=== PATIENT | male | born 1970 | race Caucasian/White ===

== ENCOUNTER 2016-08-16 08:46 | Day surgery (SDC) | payer MEDICAID ==
[~2016-08-16] VITALS: Ht 185.4 cm; Wt 97.1 kg
[2016-08-16] MEDS ORDERED: PRINIVIL10 MG PO (09:52)
[2016-08-16] MEDS ORDERED: KLONOPIN1 MG PO (09:53)
[2016-08-16] MEDS ORDERED: HYSINGLA ER20 MG PO (09:53)
[2016-08-16] MEDS ORDERED: FLOMAX0.4 MG PO (09:54)
[2016-08-16] MEDS ORDERED: ZYPREXA10 MG PO (09:54)
[2016-08-16] MEDS ORDERED: OMEPRAZOLE20 M1 PO (09:54)
[2016-08-16] MEDS ORDERED: DESERYL100 MG PO (09:55)
[2016-08-16] MEDS ORDERED: NEURONTIN600 MG PO (09:55)
[2016-08-16 10:05] VITALS: BP 116/68; Ht 185.4 cm; Wt 97.1 kg
[2016-08-16 10:49] LABS: HEMATOCRIT 43.1 % (42.0-54.0); HEMOGLOBIN 14.7 g/dL (13.5-17.5); MCH 30.2 pg (26.0-34.0); MCHC 34.1 g/dL (31.0-37.0); MCV 88.5 fL (80.0-100.0); MEAN PLATELET VOLUME 9.4 fL (7.4-10.4); RBC 4.87 10x6/uL (4.20-6.10); RDW 13.5 % (11.5-14.5); WBC 5.8 10x3/uL (4.8-10.8)
[2016-08-16 11:02] LABS: CALC OSMOLALITY 282 mosm/kg (275-300); CALCIUM 9.1 mg/dL (8.5-10.1); CARBON DIOXIDE 24.3 mmol/L (21.0-32.0); CHLORIDE - SERUM 107 mmol/L (98-107); CREATININE - SERUM 0.8 mg/dL (0.6-1.3); GLUCOSE 102 mg/dL (74-106); POTASSIUM - SERUM 4.4 mmol/L (3.5-5.1); SODIUM 141 mmol/L (136-145); UREA NITROGEN 17 mg/dL (7-18); eGFR NON AFRICAN AMERICAN > 90 mL/min (90-120)
--- NOTE | 2016-08-16 16:50 | NUR ---
RIGHT HAND PIV DC'D WITH TIP INTACT, PATIENT DRESSING IN PERSONAL CLOTHING. DISCHARGE INSTRUCTIONS REVIEWED WITH PATIENT AND SISTER. DISCHARGED HOME VIA WHEELCHAIR TO PRIVATE VEHICLE WITH SISTER
--- NOTE | 2016-08-18 06:33 | OP ---
PATIENT NAME: ASHLI BARBER MEDICAL RECORD: [id number] :70 LOCATION:D.OPS ADMISSION DATE: SURGEON: DONALD MOY MD DATE OF OPERATION: 08/16/2016 PREOPERATIVE DIAGNOSIS: Bilateral hip pain. POSTOPERATIVE DIAGNOSIS: Bilateral hip pain. PROCEDURE: Injection under TIVA anesthesia and fluoroscopy of bilateral hips. ANESTHESIA: General. INTRAOPERATIVE COMPLICATIONS: None. SUMMARY OF PATHOLOGIC FINDINGS: Essentially none. The left hip seems to be more arthritic than the right. OPERATIVE SUMMARY IN DETAIL: After obtaining the appropriate orthopedic surgery consent as well as anesthetic consultation, evaluation and clearance, the patient was brought to the operating room and placed on the radiolucent table in supine position. After adequate TIVA anesthesia was administered, right and left hips were prepped and draped in a routine sterile fashion. An 18-gauge needle was guided directly into the hip capsule. This was checked with Isovue and then 40 mg of Depo-Medrol with 10 cc of 0.25% Marcaine with epinephrine were injected directly into the right hip. Needle tip was withdrawn. This was repeated a second time on the left side. Again, a 18-gauge spinal needle was directed directly into the hip with fluoroscopic guidance. Isovue again showed the needle was within the hip and again 40 mg Depo-Medrol and 10 cc of 0.25% Marcaine with epinephrine were injected into the hip. The patient tolerated the procedure well, was taken to recovery in stable condition. All final needle and sponge counts were correct. TRANSINT:[id number] Voice Confirmation ID: [id number] DOCUMENT ID: [id number] DONALD MOY MD at 0633 CC: [id number] DICTATION DATE: 08/16/16 1538 REAL ESTATE LOAN PROCESSOR: 08/16/16 2342 [facility] 08/16/16 [place] [id number]
== END 2016-08-16 16:55 | disposition home or self-care (01) ==
LOC: D.OPS 08:46 → D.PAN 13:30 → D.OPS 13:30
PROVIDERS: Anesthesiology
DX: M25.552 Pain in left hip (principal); M25.551 Pain in right hip; M13.852 Other specified arthritis, left hip; M13.851 Other specified arthritis, right hip

== ENCOUNTER → 2017-06-27 13:16 | Outpatient (CLI) | payer MEDICAID ==
[2016-08-16 10:05] VITALS: BMI 28.2
[~2017-06-27 13:16] MED LIST: DESERYL100 MG PO; FLOMAX0.4 MG PO; HYSINGLA ER20 MG PO; KLONOPIN1 MG PO; NEURONTIN600 MG PO; OMEPRAZOLE20 M1 PO; PRINIVIL10 MG PO; ZYPREXA10 MG PO
== END | disposition home or self-care (01) ==
LOC: D.MRI 13:00
DX: M25.561 Pain in right knee (principal)

== ENCOUNTER → 2017-09-13 14:58 | Outpatient (CLI) | payer MEDICAID ==
[2016-08-16 10:05] VITALS: BMI 28.2
[~2017-09-13 14:58] MED LIST changes: +BELSOMRA5 MG PO; +HYDROCODONE-APA1 TAB PO; +NEURONTIN 300300 MG PO; -NEURONTIN600 MG PO; +PERCOCET 10/3251 TA1 PO; +VALIUM 2 MG TAB2 MG PO
== END | disposition home or self-care (01) ==
LOC: D.MRI 14:58
DX: M54.2 Cervicalgia (principal)

== ENCOUNTER 2017-10-26 05:15 | Day surgery (SDC) | payer MEDICAID ==
[~2017-10-26] VITALS: Ht 185.4 cm; Wt 87.5 kg
--- NOTE | ~2017-10-26 | OP ---
PATIENT NAME: ASHLI BARBER MEDICAL RECORD: [id number] :70 LOCATION:DMAGDY ADMISSION DATE: SURGEON: DONALD OMY MD DATE OF OPERATION: 10/26/2017 PREOPERATIVE DIAGNOSIS: Medial meniscus tear of the right knee. POSTOPERATIVE DIAGNOSIS: Medial meniscus tear of the right knee. PROCEDURE: Arthroscopic partial medial meniscectomy. SURGEON: Donald Moy MD ANESTHESIA: General. INTRAOPERATIVE COMPLICATIONS: None. 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 OPERATIVE SUMMARY IN DETAIL: After obtaining the appropriate preoperative orthopedic surgery consent as well as anesthetic consultation, evaluation and clearance, the patient was brought to the operating room and placed on the operating table in supine position. After general laryngeal mask airway was administered, tourniquet was placed about the proximal aspect of the right lower extremity. Right lower extremity was then prepped and draped in routine sterile fashion. Leg was elevated and exsanguinated, and tourniquet was inflated to 350 mmHg. Routine inferior lateral portal was established, followed by superomedial portal and inferomedial portal. Diagnostic arthroscopy did show the above findings. Patellofemoral joint had a small area of chondromalacia in the apex at the patella. The lateral compartment was pristine. Arthroscopic resector along with a meniscotome were then utilized to debride the medial meniscus back to stable meniscal elements with good retention of the meniscus structure. Having completed this, the knee was insufflated with 30 cc of 0.25% Marcaine and 80 mg of Depo-Medrol. Arthroscopy portals were closed in routine interrupted fashion using 4-0 Prolene. Sterile dressings were applied. The patient was awakened and taken to recovery room in stable condition. All final needle and sponge counts were correct. TRANSINT:[id number] Voice Confirmation ID: [id number] DOCUMENT ID: [id number] DONALD MOY MD at 1048 CC: [id number] DICTATION DATE: 10/26/17 0955 RENAL NURSE: 10/26/17 1147 [place] [facility] [place]26/17 [facility] [address] [place] [place] [address]
[~2017-10-26 05:15] MED LIST changes: -BELSOMRA5 MG PO; -PERCOCET 10/3251 TA1 PO
[2017-10-26 06:37] VITALS: BP 143/93; Ht 185.4 cm; Wt 87.5 kg
[2017-10-26] MEDS ORDERED: BELSOMRA5 MG PO (06:55)
[2017-10-26] MEDS ORDERED: PERCOCET 10/3251 TA1 PO (09:00)
[2017-11-27] MEDS ORDERED: CHANTIX 1 MG TAB1 MG PO (12:38)
== END 2017-10-26 11:00 | disposition home or self-care (01) ==
LOC: D.OPS 05:15 → D.PAN 07:30 → D.OPS 11:00
DX: S83.206A Unspecified tear of unspecified meniscus, current injury, right knee, initial encounter (principal)

== ENCOUNTER 2017-10-31 06:05 | Day surgery (SDC) | payer MEDICAID ==
[~2017-10-31] VITALS: Ht 185.4 cm; Wt 89.8 kg
--- NOTE | ~2017-10-31 | OP ---
PATIENT NAME: ASHLI BARBER MEDICAL RECORD: [id number] :70 LOCATION:[facility] ADMISSION DATE: SURGEON: RONY HOLLIDAY MD DATE OF OPERATION: 10/31/2017 SURGEON: Rony Holliday MD ANESTHESIA: General anesthesia by Myrna Pineda CRNA PREOPERATIVE DIAGNOSIS: Slow urinary flow. 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 PROCEDURE: Cystoscopy. ESTIMATED BLOOD LOSS: None. CLINICAL HISTORY: This is a 47-year-old male, who has been complaining of a slow urinary flow for the past few years. He has been on Flomax for the past 2 years and initially it helped somewhat, but is not helping now. He has urinary frequency up to 10 times during the day and also very frequent nocturia. He did have a history of falling off a roof in 2006 and he was catheterized while he was in the hospital there. Therefore, I am checking today with cystoscopy to see if he has urethral stricture. If he has urethral stricture, we will go ahead and incise it. HE IS ALLERGIC TO PENICILLIN. He was given Levaquin IV cupola charger insulation to the OR. DESCRIPTION OF PROCEDURE: The patient was given induction of general anesthesia. He was placed in dorsal lithotomy position, prepped and draped. I started with a 17-Uzbek cystoscope with 30-degree lens for visualization. The penile urethra was completely normal with no signs of strictures at all. The prostatic urethra shows no obstruction by the lateral lobes. However, the bladder neck is quite tight and obstructive. Going into the bladder, the bladder is moderately trabeculated and there were single ureteral orifices on each side. No bladder tumors were seen. The bladder was emptied through the cystoscope sheath and then the sheath was removed. The patient was awakened and brought to the recovery room. I will discuss a possible GreenLight laser TURP with him in the future. TRANSINT:[id number] Voice Confirmation ID: [id number] DOCUMENT ID: [id number] RONY HOLLIDAY MD at 1259 CC: [id number] DICTATION DATE: 10/31/17 0942 PLATING TANK OPERATOR APPRENTICE: 10/31/17 1132 REG [facility] [address] [place] [address]
[~2017-10-31 06:05] MED LIST changes: +BELSOMRA5 MG PO; +PERCOCET 10/3251 TA1 PO
[2017-10-31 07:42] VITALS: BP 128/78; Ht 185.4 cm; Wt 89.8 kg
[2017-11-27] MEDS ORDERED: CHANTIX 1 MG TAB1 MG PO (12:38)
== END 2017-10-31 12:30 | disposition home or self-care (01) ==
LOC: D.OPS 06:05
DX: N32.0 Bladder-neck obstruction (principal); N32.89 Other specified disorders of bladder; R35.0 Frequency of micturition; R35.1 Nocturia; Z88.0 Allergy status to penicillin; Z01.812 Encounter for preprocedural laboratory examination

== ENCOUNTER 2017-11-28 07:35 | Day surgery (SDC) | payer MEDICAID ==
[~2017-11-28] VITALS: Ht 185.4 cm; Wt 87.5 kg
--- NOTE | ~2017-11-28 | OP ---
PATIENT NAME: ASHLI BARBER MEDICAL RECORD: [id number] :70 LOCATION:D.[facility] ADMISSION DATE: SURGEON: RONY HOLLIDAY MD DATE OF OPERATION: 11/28/2017 SURGEON: Rony Holliday MD ANESTHESIA: General anesthesia by Surya Vargas CRNA DIAGNOSIS: Obstructive benign prostatic hypertrophy. PROCEDURE: Cystoscopy, GreenLight laser transurethral resection of the prostate, power 80-100 méndez, laser on time 10 minutes and 2 seconds, energy 55,061 kilojoules. FINDINGS: Median lobe hyperplasia, BPH, causing bladder neck obstruction. SPECIMENS: None. BLOOD LOSS: None. CLINICAL HISTORY: This is a 47-year-old male, who complains of a longstanding history of slow urinary flow. He has a significant urinary frequency also. He has been put on Flomax and it has not helped him. He has a history of previous pelvic injury from falling off a roof. On 10/31/2017, I took him to cystoscopy thinking that he may have a urethral stricture. What I found was that he did not have any urethral stricture. Instead he had obstructive BPH from a large median lobe. No bladder tumors were seen. He comes today to have a GreenLight laser transurethral resection of the prostate. He is allergic to PENICILLIN. He was given Levaquin IV ornamental ironworker to the OR. It should be noted that he is also a chronic pain patient having chronic pain since his fall off the roof. He requested Dilaudid be given to him postoperatively for pain management as he feels that Stanley is ineffective. DESCRIPTION OF PROCEDURE: The patient was given induction of general anesthesia. He was then placed into a dorsal lithotomy position and prepped and draped. The laser resectoscope had difficulty entering into the urethral meatus and therefore his urethra had to be dilated to 26-Maltese with male sounds. The scope was then placed using the visual obturator. Urethra again shows no strictures. He has lateral lobes, which are not occlusive. The bladder neck is extremely tight and the scope has to be deflected quite significantly anteriorly to get into the bladder. The ureteral orifices are located at some distance away from the bladder neck. We then introduced the laser fiber. Starting at 80 méndez and resecting between the bladder neck and just proximal to the verumontanum and the 6 o'clock position we created a large channel for urine and fluid flow. Eventually, the entire posterior wall was taken down and the bladder neck median lobe was resected without undermining the bladder neck at all. We then went proximally towards the verumontanum and cleared out a nice space on the posterior wall. The lateral lobes then started to encroach inwards and these were also resected down to the pseudocapsule. As we did more of the resection, the tissue started to desiccate and we had to increase the power to 100 méndez. At the end of the procedure, no bleeding was seen at all. In fact, the procedure had been bloodless throughout. He had a wide open channel from just proximal to the verumontanum to the bladder neck. The ureteral orifices were intact. The scope was removed. A 20-Maltese 3-way Craig catheter was then OPERATIVE REPORT [id number] ASHLI BARBER introduced into the bladder. The balloon was inflated with 20 cc of sterile water. The inflow port was plugged with a catheter plug. I then put the catheter to bag drainage. The patient will be going home today with a prescription for Dilaudid 8 mg p.o. q.6 hours p.r.n. 16 tablets with no refills and also oxybutynin 5 mg p.o. t.i.d. p.r.n. for bladder spasms. I will see him in the office later this week to remove the Craig catheter for voiding trial. TRANSINT:[id number] Voice Confirmation ID: [id number] DOCUMENT ID: [id number] RONY HOLLIDAY MD at 1345 CC: [id number] DICTATION DATE: 11/28/17 1225 ELECTROPLATER AUTOMATIC: 11/28/17 1246 REG [facility] [address] [place] [address]
[~2017-11-28 07:35] MED LIST changes: +CHANTIX 1 MG TAB1 MG PO
[2017-11-28 08:00] VITALS: Ht 185.4 cm; Wt 87.5 kg
[2017-11-28] MEDS ORDERED: OXYBUTYNIN CHLOR5 MG PO (14:44)
[2017-11-28] MEDS ORDERED: DILAUDID8 MG PO (14:44)
== END 2017-11-28 15:05 | disposition home or self-care (01) ==
LOC: D.OPS 07:35 → D.PAN 09:30 → D.OPS 15:05
DX: N40.1 Benign prostatic hyperplasia with lower urinary tract symptoms (principal); N13.8 Other obstructive and reflux uropathy; R35.0 Frequency of micturition; R39.12 Poor urinary stream; G89.29 Other chronic pain; Z91.81 History of falling; Z88.0 Allergy status to penicillin; Z01.812 Encounter for preprocedural laboratory examination

== ENCOUNTER → 2017-12-08 16:52 | Outpatient (CLI) | payer MEDICAID ==
[2017-11-28 08:00] VITALS: BMI 25.5
[~2017-12-08 16:52] MED LIST changes: +DILAUDID8 MG PO; +OXYBUTYNIN CHLOR5 MG PO
== END | disposition home or self-care (01) ==
LOC: D.LABREF 16:52
DX: D72.829 Elevated white blood cell count, unspecified (principal); R31.9 Hematuria, unspecified

== ENCOUNTER → 2018-12-17 07:49 | Outpatient (CLI) | payer MEDICAID ==
[2017-11-28 08:00] VITALS: BMI 25.5
[~2018-12-17 07:49] MED LIST changes: +BENADRYL25 MG PO; +CELEBREX400 MG PO; +DICLOFENAC SODI50 MG; +LIPITOR20 MG PO; +LISINOPRIL10 MG PO; +PRILOSEC; +ROXICODONE15 MG PO; +SEROQUEL100 MG PO
== END | disposition home or self-care (01) ==
LOC: D.NM 07:49
PROVIDERS: ATTEND Orthopaedic Surgery
DX: Z87.81 Personal history of (healed) traumatic fracture (principal)

== ENCOUNTER → 2019-01-04 09:59 | Outpatient (CLI) | payer MEDICAID ==
[2017-11-28 08:00] VITALS: BMI 25.5
--- NOTE | ~2019-01-04 | HEMODYNAMI ---
PATIENT:ASHLI BARBER MEDICAL RECORD: [id number] : 70 LOCATION:[facility] ADMISSION DATE: 01/04/19 Generatedon:01/04/201910:57 Patient name: ASHLI BARBER Patient #: [id number] SSN: : 1970 Date of study: 01/04/2019 Page: Of Hemodynamic Procedure Report Patient Data Patient Demographics Procedure consent was obtained First Name: ASHLI Gender: Male Last Name: SUNIL : 1970 Middle Initial: MAIKOL Age: 48 year(s) Patient #: [id number] Race: Unknown Additional ID: [id number] Contact details [address]: [address] [place] [address] State: [place] City: [place] Zip code: [address] Past Medical History Allergies Allergen Reaction Date Comments Reported Other allergy 01/04/2019 PCN Admission Admission Data Admission Date: 01/04/2019 Admission Time: 9:59 Procedure Procedure Types Cath Procedure Peripheral Cath Diagnostic Procedure Miscellaneous Joint Aspiration w/US Procedure Description Procedure Date Procedure Date: 01/04/2019 Procedure Start Time: 10:39 Procedure Staff Name Function Johnnie Stephenson MD Performing Physician Donn Barrera RT Scrub Sonia Shaw RT Monitor Hemodynamics Rest Pre Cath Intra NCS Post Cath Procedure Log Time Note 10:31:32 Donn Barrera RT (R) (CV) sent for patient. Start room use. 10:31:34 Time tracking: Regular hours (M-F 7:00 - 5:00) 10:31:37 Signed procedure consent form obtained from patient. 10:31:39 Correct patient and procedure confirmed by team. 10:32:31 Pre-procedure instructions explained to patient. 10:32:32 Pre-op teaching completed and patient verbalized understanding. 10:33:21 Patient allergic to Other allergyPCN 10:33:44 Is patient on blood thinner?No 10:33:50 - 10:34:00 Right Knee was prepped with betadine and draped in sterile fashion. 10:34:02 Alarms reviewed by Avinash Leiva 10:34:02 Sharps counted by scrub and verified by Zak 10:34:05 - 10:39:00 Physician arrived 10:39:01 --------ALL STOP TIME OUT------ 10:39:01 Final Timeout: patient, procedure, and site verified with staff and physician. All members of the team are in agreement. 10:39:22 Procedure started. 10:39:23 Full Disclosure recording started 10:39:44 Local anesthetic to Right Knee with Lidocaine 1% by Johnnie Stephenson MD.INITIAL ACCESS ONLY 10:40:31 SAFE-T PLUS MYELOGRAM TRAY opened to sterile field. 10:52:13 Procedure ended.(Physican Out) Device Usage Item Name Manufacture Quantity Catalog Hospital Part Current Minimal Lot# / Number Charge Number Stock Stock Serial# Code SAFE-T CareFusion 1 [id number] PLUS MYELOGRAM TRAY Signature Audit [place] Stage Time Signature Unsigned Intra-Procedure 01/04/2019 Sonia Shaw 10:57:16 AM (R) [facility] [address] [place] [address]
[2019-01-04 11:59] LABS: PROTEIN - BODY FLUID 3.4 G/DL
[2019-01-04 13:40] LABS: MACROPHAGES BF 37 %; NEUT - BF 13 %
== END | disposition home or self-care (01) ==
LOC: D.RAD 09:59
PROVIDERS: Radiology Diagnostic Radiology; ATTEND Orthopaedic Surgery
DX: M25.461 Effusion, right knee (principal)

== ENCOUNTER → 2019-01-17 16:51 | Outpatient (CLI) | payer MEDICAID ==
[2017-11-28 08:00] VITALS: BMI 25.5
== END | disposition home or self-care (01) ==
LOC: D.LABREF 16:51
PROVIDERS: ATTEND Orthopaedic Surgery
DX: M17.11 Unilateral primary osteoarthritis, right knee (principal)

== ENCOUNTER 2019-02-13 08:00 | Outpatient (CLI) | payer MEDICAID ==
[~2019-02-13] VITALS: Ht 185.4 cm; Wt 102.0 kg
[~2019-02-13 08:00] MED LIST changes: -BENADRYL25 MG PO; -CELEBREX400 MG PO; -ROXICODONE15 MG PO
[2019-02-13 11:16] LABS: BASOPHILS 0.2 % (0-2); EOSINOPHILS 2.7 % (0-7); HEMATOCRIT 38.1 % (42.0-54.0); HEMOGLOBIN 12.3 g/dL (13.5-17.5); IMMATURE GRANULOCYTES 0.2 % (0-5); LYMPHOCYTES 20.5 % (15-50); MCH 29.3 pg (26.0-34.0); MCHC 32.3 g/dL (31.0-37.0); MCV 90.7 fL (80.0-100.0); MEAN PLATELET VOLUME 8.5 fL (7.4-10.4); MONOCYTES 5.4 % (2-11); RDW 13.3 % (11.5-14.5); WBC 11.6 10x3/uL (4.8-10.8)
[2019-02-13 11:17] LABS: PLATELET COUNT 355 10x3/uL (130-400)
[2019-02-13 11:30] LABS: APTT 33.7 SECONDS (22.8-39.4); INR 1.06 (0.85-1.17); PROTIME 13.3 SECONDS (11.6-15.0)
[2019-02-13 11:38] LABS: ANION GAP 16.5 mmol/L (8-16); CALCIUM 8.8 mg/dL (8.5-10.1); CARBON DIOXIDE 26.9 mmol/L (21.0-32.0); CREATININE - SERUM 8.1 mg/dL (0.6-1.3); POTASSIUM - SERUM 4.4 mmol/L (3.5-5.1)
[2019-02-13] MEDS ORDERED: BENADRYL25 MG PO (12:13)
[2019-02-13] MEDS ORDERED: ROXICODONE15 MG PO (12:14)
[2019-02-13] MEDS ORDERED: CELEBREX400 MG PO (12:18)
[2019-02-15 09:50] VITALS: Ht 185.4 cm; Wt 102.0 kg
== END 2019-02-13 08:01 | disposition home or self-care (01) ==
LOC: D.OPS 08:00 → D.SDCHOLD 10:00 → EDSTATUS 02-18 10:00 → D.SDCHOLD 02-18 10:00
PROVIDERS: ATTEND Orthopaedic Surgery
DX: Z87.81 Personal history of (healed) traumatic fracture (principal); M17.11 Unilateral primary osteoarthritis, right knee

== ENCOUNTER 2019-02-13 16:12 | Inpatient (IN) | payer MEDICAID ==
[2019-02-13] VITALS (9 sets, daily range): BP systolic 74–100; BP diastolic 37–52; BMI 30.1
[~2019-02-13] VITALS: Ht 185.4 cm; Wt 103.4 kg
[~2019-02-13 16:12] MED LIST changes: +BENADRYL25 MG PO; +CELEBREX400 MG PO; +ROXICODONE15 MG PO
[2019-02-13 17:37] LABS: BASOPHILS 0.2 % (0-2); EOSINOPHILS 2.6 % (0-7); HEMATOCRIT 33.7 % (42.0-54.0); HEMOGLOBIN 11.2 g/dL (13.5-17.5); IMMATURE GRANULOCYTES 0.2 % (0-5); MCHC 33.2 g/dL (31.0-37.0); MCV 90.3 fL (80.0-100.0); MEAN PLATELET VOLUME 8.8 fL (7.4-10.4); MONOCYTES 6.4 % (2-11); NEUTROPHILS 63.6 % (40-80); PLATELET COUNT 340 10x3/uL (130-400); RBC 3.73 10x6/uL (4.20-6.10); RDW 13.2 % (11.5-14.5); WBC 11.3 10x3/uL (4.8-10.8)
[2019-02-13 17:48] LABS: CALC OSMOLALITY 283 mosm/kg (275-300); CHLORIDE - SERUM 95 mmol/L (98-107); GLUCOSE 102 mg/dL (74-106); POTASSIUM - SERUM 4.2 mmol/L (3.5-5.1); SODIUM 135 mmol/L (136-145); UREA NITROGEN 53 mg/dL (7-18); eGFR NON AFRICAN AMERICAN 7 mL/min (90-120)
[2019-02-13 17:49] LABS: INR 1.07 (0.85-1.17); PROTIME 13.4 SECONDS (11.6-15.0)
[2019-02-13 17:50] LABS: APTT 30.4 SECONDS (22.8-39.4)
[2019-02-13 18:09] LABS: ALBUMIN 3.6 g/dL (3.4-5.0); ALKALINE PHOSPHATASE 87 U/L (46-116); ALT (SGPT) 18 U/L (10-68); BILIRUBIN - TOTAL 0.44 mg/dL (0.2-1.3); CKMB 9.3 U/L (0.0-3.6)
[2019-02-13 18:10] LABS: CREATINE KINASE 1059 UL (21-232)
[2019-02-13 18:13] LABS: TROPONIN-I 0.209 ng/mL (0.000-0.060)
--- NOTE | 2019-02-13 19:40 | NUR ---
SECOND IV STARTED IN LEFT FOREARM 20GA.
--- NOTE | 2019-02-13 19:50 | NUR ---
TELEPHONE ORDER FOR DILAUDID 1 MG Q 4 HR PRN FOR, REPEATED ORDER AND VERIFIED WITH SECOND NURSE MADAI RUIZ.
--- NOTE | 2019-02-13 20:09 | NUR ---
CONTACTED VAN ENRIQUEZ PERTAINING TO BP WILL HOLD PATIENT UNTIL 1ST BOLUS IS FINISHED AND REEVALUATE VITALS TO DETERMINE ROOM ASSIGNMENT.
[2019-02-13 20:37] LABS: APPEARANCE CLEAR (CLEAR); BILIRUBIN NEGATIVE (NEGATIVE); COLOR YELLOW (YELLOW); GLUCOSE 50 mg/dL (NEGATIVE); KETONE NEGATIVE (NEGATIVE); NITRITE NEGATIVE (NEGATIVE); PROTEIN 1+ mg/dL (NEGATIVE); UROBILINOGEN NORMAL (NORMAL)
[2019-02-13 20:39] LABS: BACTERIA MODERATE /hpf (NEGATIVE); EPITHELIAL CELLS 0-5 /hpf (0-5); HYALINE CAST 25-50 /lpf (NONE SEEN); RED CELLS - URINE 0-5 /hpf (0-5); WHITE CELLS - URINE 0-5 /hpf (NEGATIVE)
[2019-02-13 20:40] LABS: AMORPHOUS SEDIMENT >1+ /lpf (NONE SEEN); GRANULAR CAST 0-5 /lpf (NONE SEEN)
--- NOTE | 2019-02-13 22:30 | NUR ---
PATIENT ARRIVED TO FLOOR VIA WHEELCHAIR. SELF TRANSFERED TO BED. PATIENT HAS F/C DRAINING CLOUDY STRAW-COLORED URINE BY GRAVITY. IV TO LT FA, PATENT, NS BOLUS INFUSING BY GRAVITY, DRSG C/D/I. QUICK START, MED REC, ADULT HX, SSC ALL COMPLETED. VSS. CL IN REACH, BED LOCKED AND LOWERED. WILL CTM.
[2019-02-14] VITALS (39 sets, daily range): BP systolic 64–104; BP diastolic 36–65
[2019-02-14 00:34] LABS: CKMB 6.7 U/L (0.0-3.6)
--- NOTE | 2019-02-14 00:34 | NUR ---
PATIENT MEDICATED FOR NAUSEA AND PAIN AT THIS TIME.
[2019-02-14 00:40] LABS: CREATINE KINASE 866 UL (21-232)
--- NOTE | 2019-02-14 04:46 | NUR ---
PATIENT MEDICATED FOR NAUSEA AND PAIN AT THIS TIME.
[2019-02-14 05:32] LABS: BASOPHILS 0.1 % (0-2); EOSINOPHILS 2.9 % (0-7); HEMATOCRIT 29.4 % (42.0-54.0); HEMOGLOBIN 9.5 g/dL (13.5-17.5); IMMATURE GRANULOCYTES 0.1 % (0-5); LYMPHOCYTES 26.8 % (15-50); MCH 29.1 pg (26.0-34.0); MCHC 32.3 g/dL (31.0-37.0); MCV 90.2 fL (80.0-100.0); MEAN PLATELET VOLUME 8.4 fL (7.4-10.4); NEUTROPHILS 63.1 % (40-80); RBC 3.26 10x6/uL (4.20-6.10); RDW 13.2 % (11.5-14.5); WBC 8.9 10x3/uL (4.8-10.8)
[2019-02-14 05:38] LABS: PLATELET COUNT 266 10x3/uL (130-400)
--- NOTE | 2019-02-14 05:44 | NUR ---
REFUGE WORKER REPORTED LOW BP, MANUAL BP TAKEN SEVERAL TIMES IN BOTH ARMS, BP 64/36. VAN ENRIQUEZ PAGED. RECEIVED ORDERS TO BOLUS 500ML NS AND TRANSFER TO ICU.
[2019-02-14 06:10] LABS: ALBUMIN 2.8 g/dL (3.4-5.0); ALKALINE PHOSPHATASE 73 U/L (46-116); ALT (SGPT) 19 U/L (10-68); CALC OSMOLALITY 283 mosm/kg (275-300); CALCIUM 7.6 mg/dL (8.5-10.1); CARBON DIOXIDE 23.5 mmol/L (21.0-32.0); CHLORIDE - SERUM 100 mmol/L (98-107); CKMB 5.4 U/L (0.0-3.6); GLUCOSE 101 mg/dL (74-106); MAGNESIUM - SERUM 2.2 mg/dL (1.8-2.4); PHOSPHOROUS 5.7 mg/dL (2.5-4.9); POTASSIUM - SERUM 4.3 mmol/L (3.5-5.1); PRO BNP 85 pg/mL (0-125); SODIUM 135 mmol/L (136-145); UREA NITROGEN 53 mg/dL (7-18)
[2019-02-14 06:11] LABS: CREATINE KINASE 623 UL (21-232); CREATININE - SERUM 6.1 mg/dL (0.6-1.3); eGFR NON AFRICAN AMERICAN 10 mL/min (90-120)
--- NOTE | 2019-02-14 06:11 | NUR ---
TRIED TO CALL REPORT TO CVICU, NURSE UNAVAILABLE WILL CALL BACK.
[2019-02-14 06:12] LABS: TROPONIN-I 0.127 ng/mL (0.000-0.060)
--- NOTE | 2019-02-14 06:55 | NUR ---
PATIENT ARRIVED TO UNIT, AAOX4, ALL MONITORING INITIATED, REPORT GIVEN TO DAY SHIFT RN MARCIA.
--- NOTE | 2019-02-14 07:44 | NUR ---
PT HYPOTENSIVE. NS AT 999 FOR 250. PT CONTINUES TO BE HYPOTENSIVE. CALLED VAN ENRIQUEZ AND DR HUGHES. NS AT 999 AGAIN FOR FLUID BOLUS ORDERED.
--- NOTE | 2019-02-14 07:55 | NUR ---
SPOKE TO DR QUINTERO RE: CONSULT.
--- NOTE | 2019-02-14 08:17 | NUR ---
DR HUGHES HERE.
[2019-02-14 08:34] LABS: AMYLASE - SERUM 82 U/L (25-115); LIPASE 187 U/L (73-393)
--- NOTE | 2019-02-14 10:56 | NUR ---
PT C/O PAIN TO FLANK AREA. DILAUDID GIVEN. BP 91.50.
[2019-02-14 12:21] LABS: CKMB 4.1 U/L (0.0-3.6); CREATINE KINASE 520 UL (21-232); TROPONIN-I 0.126 ng/mL (0.000-0.060)
--- NOTE | 2019-02-14 12:58 | NUR ---
PT WALE REG DIET. BP IMPROVING. UOP/ MCPHERSON FULL. EMPTIED 2400CC CL YELLOW URINE.
--- NOTE | 2019-02-14 14:55 | NUR ---
BP 70/43. REPORTED TO DR GUERRERO. [facility] NOW AND INC PLASMALYTE ORDERED.
[2019-02-14 15:47] LABS: ANION GAP 13.1 mmol/L (8-16); CALCIUM 7.5 mg/dL (8.5-10.1); CARBON DIOXIDE 23.4 mmol/L (21.0-32.0); POTASSIUM - SERUM 4.5 mmol/L (3.5-5.1)
[2019-02-14 15:59] LABS: CREATININE - SERUM 3.6 mg/dL (0.6-1.3)
[2019-02-14 16:34] LABS: ANION GAP 13.8 mmol/L (8-16); CALCIUM 7.7 mg/dL (8.5-10.1); POTASSIUM - SERUM 4.8 mmol/L (3.5-5.1)
[2019-02-14 16:35] LABS: CREATININE - SERUM 4.2 mg/dL (0.6-1.3)
--- NOTE | 2019-02-14 17:25 | NUR ---
CALLED TO REPORT LABS TO DR HUGHES. NO NEW ORDERS.
--- NOTE | 2019-02-14 19:00 | NUR ---
REPORT RECEIVED. RECEIVED PATIENT IN BED. AWAKE ALERT AND ORIENTED X 4. ASSESSMENT COMPLETED PER FLOW SHEET WITH NO ACUTE DISTRESS OBSERVED. MONITOR CONNECTED TO PATIENT WITH ALARMS SET. VSS. IV FLUIDS/TUBING DATED/LABELED CURRENT. CALL LIGHT IN REACH AND ABLE TO UTILIZE TO MAKE NEEDS KNOWN.
--- NOTE | 2019-02-14 21:00 | NUR ---
AWAKE AND ALERT. VSS
--- NOTE | 2019-02-14 23:00 | NUR ---
AWAKE AND ALERT. REASSESSMENT COMPLETED PER FLOW SHEET WITH NO ACUTE DISTRESS OBSERVED. VSS. CALL LIGHT IN REACH
[2019-02-15] VITALS (16 sets, daily range): BP systolic 92–149; BP diastolic 42–87; Ht 185.4 cm; Wt 103.4 kg
--- NOTE | 2019-02-15 01:00 | NUR ---
AWAKE AND ALERT. VSS
--- NOTE | 2019-02-15 02:00 | NUR ---
FC REMOVED. WALE WITHOUT DIFF
--- NOTE | 2019-02-15 03:00 | NUR ---
REASSESSMENT COMPLETED PER FLOW SHEET WITH NO ACUTE DISTRESS OBSERVED. VSS. CALL LIGHT IN REACH. VOIDING WITHOUT DIFF.
[2019-02-15 04:31] LABS: BASOPHILS 0.2 % (0-2); HEMATOCRIT 27.1 % (42.0-54.0); HEMOGLOBIN 8.8 g/dL (13.5-17.5); IMMATURE GRANULOCYTES 0.2 % (0-5); LYMPHOCYTES 27.7 % (15-50); MCH 29.2 pg (26.0-34.0); MCHC 32.5 g/dL (31.0-37.0); MEAN PLATELET VOLUME 8.7 fL (7.4-10.4); MONOCYTES 9.6 % (2-11); NEUTROPHILS 59.3 % (40-80); PLATELET COUNT 285 10x3/uL (130-400); RBC 3.01 10x6/uL (4.20-6.10)
[2019-02-15 04:35] LABS: WBC 5.9 10x3/uL (4.8-10.8)
--- NOTE | 2019-02-15 05:00 | NUR ---
AWAKE AND ALERT. VSS. NO ACUTE DISTRESS OBSERVED. CALL LIGHT IN REACH
[2019-02-15 05:06] LABS: CALCIUM 8.1 mg/dL (8.5-10.1); CARBON DIOXIDE 27.6 mmol/L (21.0-32.0); CHLORIDE - SERUM 107 mmol/L (98-107); GLUCOSE 93 mg/dL (74-106); MAGNESIUM - SERUM 2.4 mg/dL (1.8-2.4); POTASSIUM - SERUM 4.6 mmol/L (3.5-5.1); SODIUM 141 mmol/L (136-145); URIC ACID 7.1 mg/dL (2.6-7.2)
[2019-02-15 05:13] LABS: CALC OSMOLALITY 285 mosm/kg (275-300); CREATINE KINASE 353 UL (21-232); CREATININE - SERUM 1.8 mg/dL (0.6-1.3); PHOSPHOROUS 2.2 mg/dL (2.5-4.9); UREA NITROGEN 27 mg/dL (7-18); eGFR NON AFRICAN AMERICAN 43 mL/min (90-120)
[2019-02-15 05:14] LABS: CKMB 1.6 U/L (0.0-3.6)
--- NOTE | 2019-02-15 07:00 | NUR ---
RECEIVED BEDSIDE REPORT ON PATIENT AND ASSUMED CARE. C/O 12/27 PAIN TO BACK. PATIENT ALERT AND ORIENTED X 4, VSS. IV INFUSING TO LEFT FA 20 GA, PLASMOLYTE 200 CC/HR WITH NO S/S OF INFILTRATION. CM - SR RATE OF 78, RR - 15, BBS CLEAR AND EQUAL, SPO2 - 99% ON RA. HEAD TO TOE ASSESSMENT COMPLETED.
--- NOTE | 2019-02-15 07:43 | NUR ---
PRN PAIN MED GIVEN PER MAR. BREAKFAST TRAY GIVEN TO PATIENT.
--- NOTE | 2019-02-15 08:13 | NUR ---
DR. MONTENEGRO AT ROOM UPDATED AND EXAMINES PATIENT. OK TO TRANSFER TO FLOOR IF 3 CONSECUTIVE SYSTOLIC BPS GREATER THAN 100, POSSIBLE DISCHARGE TOMORROW.
--- NOTE | 2019-02-15 08:59 | NUR ---
PATIENT ATE 100% OF BREAKFAST.
--- NOTE | 2019-02-15 09:24 | NUR ---
DR. HUGHES AT ROOM UPDATED AND EXAMINES PATIENT. DECREASES IVF TO 100 CC/HR. OK TO TRANSFER TO FLOOR FROM RENAL STANDPOINT.
--- NOTE | 2019-02-15 10:14 | NUR ---
ROVING INSPECTOR AT ROOM.
--- NOTE | 2019-02-15 10:45 | NUR ---
PATIENT UP TO BEDSIDE CHAIR. VSS.
--- NOTE | 2019-02-15 12:54 | NUR ---
PATIENT UP IN BEDSIDE CHAIR, WATCHING TV. NO NEEDS AT THIS TIME.
--- NOTE | 2019-02-15 13:23 | NUR ---
PAGED DR. MOY REFERENCE PATIENT SCHEDULED FOR SURGERY ON MONDAY TO VERIFY IF SURGERY STILL ANTICIPATED TO OCCUR.
--- NOTE | 2019-02-15 13:45 | NUR ---
PATIENT AMBULATORY TO BATHROOM.
--- NOTE | 2019-02-15 13:59 | NUR ---
PATIENT BACK TO BEDSIDE CHAIR. VSS.
--- NOTE | 2019-02-15 14:04 | NUR ---
SPOKE TO DR. MOY, STATES DUE TO SOHEILA WILL NOT HAVE SURGERY ON MONDAY BUT WILL BE RESCHEDULED FOR A LATER DATE ONCE RECOVERED. PATIENT TO TRANSFER TO ROOM 2107.
--- NOTE | 2019-02-15 14:13 | NUR ---
REPORT GIVEN TO PAULETTE MONTALVO, PATIENT TO TRANSFER TO ROOM 2128. TRANSPORTED VIA WHEEL CHAIR, ON ROOM AIR. VSS.
--- NOTE | 2019-02-15 14:30 | NUR ---
RECEIVED PT FROM CVICU. PT IS AAO AND UP AD ALIYAH. RR EVEN AND UNLABORED ON RA. PLASMALYTE INFUSING @100ML/HR VIA L.FOR PIV. NO S/S OF DISTRESS NOTED. VSS AND WNL. PT DENIES ANY NEEDS AT THIS TIME. WILL CTM.
--- NOTE | 2019-02-15 14:32 | MORECARE ---
CASE MANAGEMENT DISCHARGE SUMMARY PATIENT: ASHLI BARBER UNIT: [id number] ADM DATE: 02/13/19 AGE: 48 : [birth year] SEX: M ROOM/BED: D.3907 AUTHOR: ZANDER,DOC PHYSICIAN: REFERRING PHYSICIAN: LEANDRO ENCINAS MD DATE OF SERVICE: 02/15/19 Discharge Plan Patient Name: ASHLI BARBER Facility[facility]:[place] : 1970 Planned Disposition: Home Anticipated Discharge Date: 02/16/19 Discharge Date: Expected LOS: 3 Initial Reviewer: [email or web address] Initial Review Date: 02/15/2019 Generated: 02/15/19 3:32 pm Comments DCP- Discharge Planning Updated by [email or web address]: Brianna Mars on 02/15/19 1:[address] Patient Name: ASHLI BARBER Admission Status: ER Accout number: [id number] Admission Date: 02-13-2019 : 1970 Admission Diagnosis: Attending: COTY Current LOS: 2 Anticipated DC Date: 02-16-2019 Planned Disposition: Home [place] [employer] [place] Discharge Planning Comments:CM MET WITH PATIENT TO DISCUSS DC PLANNING/NEEDS AFTER OBTAINING VERBAL CONSENT. PLANS TO DC TO HOME. DENIES NEEDS FOR EQUIPMENT, HOME HEALTH OR REHAB. ANTICIPATES DISCHARGE MONDAY IF LABS ARE GOOD. CM TO FOLLOW AND ASSIST NEEDED. Optoelectronic Technician: Brianna Mars DCPIA - Discharge Planning Initial Assessment Updated by [email or web address]: Brianna Mars on 02/15/19 2:22 pm * Is the patient Alert and Oriented? Yes * PCP ADEOLA * Pharmacy [facility] * Preadmission Environment Home Alone * ADLs Independent * Other Equipment CRUTCHES, CANE * List name and contact numbers for known caregivers / representatives who currently or will assist patient after discharge: ZELDA YIN, SISTER, * Community resources currently utilized None * Additional services required to return to the preadmission environment? No * Can the patient safely return to the preadmission environment? Yes * Has this patient been hospitalized within the prior 30 days at any hospital? No Patient Name: ASHLI BARBER Page [id number] at 1432 All edits/amendments must be made on the electronic document DICTATION DATE: 02/15/191431 PRODUCTION FINISHER: KEIKO 02/15/191431 RPT#: [id number] DC DATE: STATUS: ADM IN [facility] [address] [place] [address] END OF REPORT
--- NOTE | 2019-02-15 15:28 | EC ---
PATIENT:ASHLI BARBER DATE OF SERVICE: 02/13/19 SEX: M MEDICAL RECORD: [id number] DATE OF : [birth year] LOCATION:D.M2 D.212 AGE OF PATIENT: 48 ADMISSION DATE: 02/13/19 REFERRING PHYSICIAN: INTERPRETING PHYSICIAN: MAIKOL JACOB MD ECHOCARDIOGRAM REPORT ECHO CHARGES 4 ECHO COMPLETE Date: 02/15/19 CLINICAL DIAGNOSIS: ELEVATED TROPONIN ECHOCARDIOGRAPHIC MEASUREMENTS (adult normal given) AC root (d.<3.7cm) 2.9 cm LV Septum d (<1.2 cm> 1.0 cm Valve Excursion 1.9 cm LV Septum (systole) 1.9 cm Left Atria (s.<4.0cm> 3.9 cm LVPW d(<1.2cm) 1.1 cm RV (d.<2.3cm) 2.5 cm LVPW (sytole) 1.9 cm LV diastole(<5.6CM) 6.3 cm MV E-F(>70mm/sec) cm LV systole 3.2 cm LVOT Diameter 1.9 cm MV exc.(>10mm) cm Est.ejection fraction (50-75%) % DOPPLER: LVIT cm/sec A 64.0 cm/sec E 94.0 cm/sec LA cm/sec RVSP 37.3 mmHg LVOT 123 cm/sec AOP1/2T m/s Asc. Ao 153 cm/sec RVOT 69.0 cm/sec RA cm/sec PA 120 cm/sec AV Gradient Peak 9.4 mmHg AV Mean 4.5 mmHg AV Area 2.3 cm MV Gradient Peak 4.7 mmHg MV Mean 1.9 mmHg MV Area cm COMMENTS: Jewelry Salesperson: 1 BHARATH HUIOE Conference Organizer: 1 Dr. Jacob TAPE# PACS Pericardial Effusion N DATE OF SERVICE: ECHOCARDIOGRAM FINDINGS: 1. Left ventricular chamber size is mildly dilated. Left ventricular systolic function is preserved at 55% to 60%. 2. Left atrium, right atrium, and right ventricular chamber sizes are within normal limits. 3. Valvular structures have normal structure and motion. ECHOCARDIOGRAM REPORT [id number] ASHLI BARBER 4. Doppler interrogation reveals mild mitral regurgitation, moderate tricuspid regurgitation, no other valvular insufficiency or stenosis. Pulmonary systolic pressure estimated at 37 mmHg. 5. No evidence of pericardial effusion or left ventricular thrombus. TRANSINT:[id number] Voice Confirmation ID: [id number] DOCUMENT ID: [id number] MAIKOL JACOB MD at 1528 CC: [id number] DICTATION DATE: 02/15/19 1236 BINGO WORKER: 02/15/19 1245 ADM IN [facility] [address] [place] [address]
--- NOTE | 2019-02-15 15:28 | CN ---
PATIENT NAME:ASHLI BARBER MEDICAL RECORD: [id number] : 70 LOCATION:D. D.2128 ADMIT DATE: 02/13/19 ACCOUNT: [id number] CONSULTING PHYSICIAN: MAIKOL QUINTERO MD REFERRING PHYSICIAN: LEANDRO ENCINAS MD DATE OF CONSULTATION: 02/14/2019 CARDIOLOGY CONSULT DIAGNOSES: 1. Increased troponin. 2. Dehydration. 3. Acute renal failure. 4. Nausea and vomiting. HISTORY OF PRESENT ILLNESS: Mr. Barber presented with noncardiac issues of projectile vomiting, acute renal failure, was found to have an elevated troponin. His EKG is normal. He had chest pain only with the nausea and vomiting. No overt chest pain. He has no family history of coronary artery disease. No other real cardiac risk factors. PHYSICAL EXAMINATION: CONSTITUTIONAL/GENERAL APPEARANCE: Well nourished, well developed, appears stated age. EYES: Lids and conjunctivae noninjected. No discharge. No pallor. ENT: Lips within normal limit. No cyanosis. No pallor. NECK: Carotid arteries, bilateral normal upstroke. No bruits. No thrills. No jugular venous pressure or distention. CERVICAL LYMPH NODES: Nontender. Nonenlarged. THYROID: Not enlarged. No nodules. CARDIOVASCULAR: Precordial exam, nondisplaced. No heaves or pericardial thrills. Rate and rhythm, regular. Heart sounds, normal S1, normal S2. No S3, no gallop, no rub. Systolic murmur, not heard. Diastolic murmur, not heard. RESPIRATORY: Respiratory effort, unlabored. Normal curvature. No thoracic deformity. No chest wall tenderness. Percussion, resonant. Auscultation, clear. No wheezes, no rales, no rhonchi. ABDOMEN: Soft, nondistended, nontender. No abdominal pain, no vomiting and normal appetite. MUSCULOSKELETAL: No joint tenderness, normal gait, normal tone. SKIN: Warm and dry. OVERALL IMPRESSION: Elevated troponin, most likely secondary to the renal failure and overall physiologic stress. We will get an echocardiogram. No other cardiac workup or treatment is necessary. TRANSINT:[id number] Voice Confirmation ID: [id number] DOCUMENT ID: [id number] CONSULT REPORT [id number] RODERICKASHLI MCGEE MAIKOL RICHARDSON MD at 1528 CC: [id number] DICTATION DATE: 02/14/19 1004 COMMUNITY HEALTH PROGRAM REPRESENTATIVE: 02/14/19 1016 ADM IN [facility] [address] [id number]
--- NOTE | 2019-02-15 18:26 | NUR ---
I CONCUR WITH CAT SCANNER OPERATOR ASSESSMENT OF THIS PATIENT.
--- NOTE | 2019-02-15 19:32 | NUR ---
REPORT RECEIVED. PT RESTING IN BED WATCHING TV. RR EVEN AND UNLABORED ON RA. DENIES NEEDS AT THIS TIME. NO S/S OF DISTRESS NOTED AT THIS TIME. SR X2, CALL LIGHT IN REACH. WILL CTM.
--- NOTE | 2019-02-15 20:10 | NUR ---
PT CALLED. IV LEAKING TO LEFT FA. D/C IV WITH CATHETER TIP INTACT. IV RESITED 22G TO LEFT HAND X2 ATTEMPT. NO FURTHER NEEDS EXPRESSED. WILL CTM.
[2019-02-16] VITALS: BP 153/72
[2019-02-16 04:30] VITALS: BP 119/70
[2019-02-16 06:02] LABS: BASOPHILS 0.2 % (0-2); HEMOGLOBIN 8.5 g/dL (13.5-17.5); IMMATURE GRANULOCYTES 0.4 % (0-5); LYMPHOCYTES 33.1 % (15-50); MCH 29.4 pg (26.0-34.0); MCHC 32.7 g/dL (31.0-37.0); MEAN PLATELET VOLUME 8.8 fL (7.4-10.4); MONOCYTES 7.3 % (2-11); PLATELET COUNT 296 10x3/uL (130-400); RBC 2.89 10x6/uL (4.20-6.10); RDW 12.9 % (11.5-14.5); WBC 5.7 10x3/uL (4.8-10.8)
[2019-02-16 06:15] LABS: CALCIUM 8.3 mg/dL (8.5-10.1); CARBON DIOXIDE 25.1 mmol/L (21.0-32.0); CHLORIDE - SERUM 109 mmol/L (98-107); GLUCOSE 85 mg/dL (74-106); MAGNESIUM - SERUM 2.3 mg/dL (1.8-2.4); PHOSPHOROUS 2.7 mg/dL (2.5-4.9); POTASSIUM - SERUM 4.9 mmol/L (3.5-5.1); SODIUM 142 mmol/L (136-145); eGFR NON AFRICAN AMERICAN 85 mL/min (90-120)
[2019-02-16 06:16] LABS: CALC OSMOLALITY 283 mosm/kg (275-300); UREA NITROGEN 17 mg/dL (7-18)
--- NOTE | 2019-02-16 08:04 | NUR ---
ASSESSMENT DONE. DENIES NEEDS
[2019-02-16 08:36] VITALS: BP 134/64
--- NOTE | 2019-02-16 09:48 | NUR ---
I have reviewed this patient and I concur with the Shift Assessment completed by the Licensed Practical Nurse today this shift.
--- NOTE | 2019-02-16 18:07 | NUR ---
DC GIVEN TO PT
--- NOTE | 2019-02-16 18:33 | NUR ---
DC HOME PER PERSONAL CAR
--- NOTE | 2019-02-17 10:13 | MORECARE ---
CASE MANAGEMENT DISCHARGE SUMMARY PATIENT: ASHLI BARBER UNIT: [id number] ADM DATE: 02/13/19 AGE: 48 : 70 SEX: M ROOM/BED: D.2384 AUTHOR: ZANDER,DOC PHYSICIAN: REFERRING PHYSICIAN: LEANDRO ENCINAS MD DATE OF SERVICE: 02/17/19 Discharge Plan Patient Name: ASHLI BARBER Facility: [facility]:[place] : 1970 Planned Disposition: Home Anticipated Discharge Date: 02/16/19 Discharge Date: 02/16/2019 Expected LOS: 3 Initial Reviewer: [email or web address] Initial Review Date: 02/15/2019 Generated: 02/17/19 11:13 am Comments DCP- Discharge Planning Updated by [email or web address]: Brianna Mars on 02/15/19 1:[address] Patient Name: ASHLI BARBER Admission Status: ER Accout number: [id number] Admission Date: 02-13-2019 : 1970 Admission Diagnosis: Attending: COTY Current LOS: 2 Anticipated DC Date: 02-16-2019 Planned Disposition: Home [place]: [place] PRIVATE OPTIONS [place] Discharge Planning Comments:CM MET WITH PATIENT TO DISCUSS DC PLANNING/NEEDS AFTER OBTAINING VERBAL CONSENT. PLANS TO DC TO HOME. DENIES NEEDS FOR EQUIPMENT, HOME HEALTH OR REHAB. ANTICIPATES DISCHARGE MONDAY IF LABS ARE GOOD. CM TO FOLLOW AND ASSIST NEEDED. Transportation Maintenance Operator: Brianna Mars DCPIA - Discharge Planning Initial Assessment Updated by [email or web address]: Brianna Mars on 02/15/19 2:22 pm * Is the patient Alert and Oriented? Yes * PCP ADEOLA * Pharmacy [facility] * Preadmission Environment Home Alone * ADLs Independent * Other Equipment CRUTCHES, CANE * List name and contact numbers for known caregivers / representatives who currently or will assist patient after discharge: ZELDA YIN, SISTER, * Community resources currently utilized None * Additional services required to return to the preadmission environment? No * Can the patient safely return to the preadmission environment? Yes * Has this patient been hospitalized within the prior 30 days at any hospital? No Last DP export: 11/29/19 1:32 Patient Name: ASHLI BARBER Page [phone] at 1013 All edits/amendments must be made on the electronic document DICTATION DATE: 02/17/19 1013 COUNTY EXTENSION AGENT: KEIKO 02/17/19 1013 RPT#: [id number] DC DATE:02/16/19 STATUS: DIS IN [facility] [address] [place] [address] END OF REPORT
== END 2019-02-16 18:33 | disposition home or self-care (01) | DRG 557 ==
LOC: D.ER 16:12 → D.M2 18:38 → D.CVICU 18:38 → D.M2 02-15 14:15
PROVIDERS: Family Medicine; Internal Medicine Nephrology; ADMIT Family Medicine; ATTEND Family Medicine
DX: M62.82 Rhabdomyolysis (principal); N17.0 Acute kidney failure with tubular necrosis; E87.1 Hypo-osmolality and hyponatremia; F17.213 Nicotine dependence, cigarettes, with withdrawal; I95.2 Hypotension due to drugs; T50.995A Adverse effect of other drugs, medicaments and biological substances, initial encounter; I10 Essential (primary) hypertension; I95.9 Hypotension, unspecified; D64.9 Anemia, unspecified; F41.8 Other specified anxiety disorders; K21.9 Gastro-esophageal reflux disease without esophagitis; G89.29 Other chronic pain; R30.0 Dysuria

== ENCOUNTER 2019-09-28 20:39 | Inpatient (IN) | payer MEDICAID ==
[~2019-09-28] VITALS: Ht 185.4 cm; Wt 93.9 kg
[~2019-09-28 20:39] MED LIST changes: +CELEBREX200 MG PO; +DILAUDID4 MG PO; +ELIQUIS2.5 MG PO; +OXYCODONE HCL E20 MG PO
[2019-09-28] MEDS ORDERED: BACTRIM DS TAB1 EAC1 PO (20:54)
[2019-09-28] MEDS ORDERED: CLEOCIN HCL150 MG PO (20:55)
[2019-09-28 21:31] LABS: BASOPHILS 0.1 % (0-2); EOSINOPHILS 0.4 % (0-7); HEMATOCRIT 37.6 % (42.0-54.0); HEMOGLOBIN 12.7 g/dL (13.5-17.5); IMMATURE GRANULOCYTES 0.2 % (0-5); LYMPHOCYTES 11.9 % (15-50); MCH 29.4 pg (26.0-34.0); MCHC 33.8 g/dL (31.0-37.0); MEAN PLATELET VOLUME 8.8 fL (7.4-10.4); MONOCYTES 5.1 % (2-11); NEUTROPHILS 82.3 % (40-80); PLATELET COUNT 255 10x3/uL (130-400); RBC 4.32 10x6/uL (4.20-6.10); RDW 13.9 % (11.5-14.5); WBC 9.5 10x3/uL (4.8-10.8)
[2019-09-28 21:54] LABS: ANION GAP 11.8 mmol/L (8-16); CARBON DIOXIDE 27.8 mmol/L (21.0-32.0); CREATININE - SERUM 1.2 mg/dL (0.6-1.3); POTASSIUM - SERUM 4.6 mmol/L (3.5-5.1)
--- NOTE | 2019-09-28 23:45 | NUR ---
PT GIVEN SANDWICH TRAY SPRITE TO DRINK AND MITCHELL
--- NOTE | 2019-09-29 02:01 | NUR ---
PT SITTING IN CHAIR WATCHING TV AT THIS TIME.
[2019-09-29 06:00] VITALS: BP 104/66
--- NOTE | 2019-09-29 06:38 | NUR ---
PT SITTING IN BED WATCHING TV AT THIS TIME.
--- NOTE | 2019-09-29 13:15 | NUR ---
PATIENT RECEIVED TO ROOM WITH DRESSING INTACT TO RIGHT HAND WITH ROM OF DIGITS AND CAP REFILL <3 SEC. ALERT AND ORIENTED X4 AND UP ADLIB. ORIENTED TO ROOM AND ENCOURAGED TO USE CALLL LIGHT FOR ASSIST
[2019-09-29 13:26] VITALS: BP 114/69; BMI 27.3
[2019-09-29 15:22] LABS: HEMATOCRIT 37.5 % (42.0-54.0); HEMOGLOBIN 12.6 g/dL (13.5-17.5); LYMPHOCYTES 19.8 % (15-50); MCHC 33.6 g/dL (31.0-37.0); MCV 86.4 fL (80.0-100.0); MEAN PLATELET VOLUME 8.3 fL (7.4-10.4); RBC 4.34 10x6/uL (4.20-6.10)
[2019-09-29 15:24] LABS: PLATELET COUNT 311 10x3/uL (130-400); WBC 5.6 10x3/uL (4.8-10.8)
[2019-09-29 15:39] LABS: ALBUMIN 3.2 g/dL (3.4-5.0); BILIRUBIN - TOTAL 0.37 mg/dL (0.2-1.3); CALCIUM 8.6 mg/dL (8.5-10.1); CREATININE - SERUM 1.2 mg/dL (0.6-1.3); PROTEIN - SERUM 6.4 g/dL (6.4-8.2)
[2019-09-29 17:04] VITALS: BP 111/69
[2019-09-29 20:00] VITALS: BP 109/64
--- NOTE | 2019-09-29 20:10 | NUR ---
AWAKE,SITTING UP WATCHING TV. NO COMPALITNS VOICED AT PRESENT. MEDICAL ASST MORPHINE IN USE FOR PAIN CONTROL. DRESSING TO RIGHT HAND INTACT WIHTOUT DRAINAGE NOTED. IV TO LFA INTACT WITHOUT REDNESS OR EDEMA NOTED. CL IN REACH
[2019-09-30] VITALS (12 sets, daily range): BP systolic 99–125; BP diastolic 57–73; Ht 185.4 cm; Wt 93.9 kg
[2019-09-30 07:39] LABS: ALBUMIN 2.7 g/dL (3.4-5.0); ALKALINE PHOSPHATASE 94 U/L (30-120); ALT (SGPT) 20 U/L (10-68); BILIRUBIN - TOTAL 0.33 mg/dL (0.2-1.3); CALC OSMOLALITY 279 mosm/kg (275-300); CALCIUM 8.5 mg/dL (8.5-10.1); CARBON DIOXIDE 24.7 mmol/L (21.0-32.0); CHLORIDE - SERUM 107 mmol/L (98-107); CREATININE - SERUM 1.1 mg/dL (0.6-1.3); GLUCOSE 90 mg/dL (74-106); POTASSIUM - SERUM 4.3 mmol/L (3.5-5.1); PROTEIN - SERUM 6.5 g/dL (6.4-8.2); SODIUM 139 mmol/L (136-145); UREA NITROGEN 19 mg/dL (7-18); eGFR NON AFRICAN AMERICAN 75 mL/min (90-120)
[2019-09-30 07:45] LABS: HEMATOCRIT 35.1 % (42.0-54.0); HEMOGLOBIN 11.8 g/dL (13.5-17.5); LYMPHOCYTES 42.3 % (15-50); MCH 29.4 pg (26.0-34.0); MCHC 33.6 g/dL (31.0-37.0); MCV 87.3 fL (80.0-100.0); MEAN PLATELET VOLUME 8.4 fL (7.4-10.4); NEUTROPHILS 50.6 % (40-80); PLATELET COUNT 303 10x3/uL (130-400); RBC 4.02 10x6/uL (4.20-6.10); RDW 13.9 % (11.5-14.5); WBC 4.2 10x3/uL (4.8-10.8)
--- NOTE | 2019-09-30 08:45 | NUR ---
PATIENT CONSENTS SIGNED AND PREOPPED PER ORDERS. CL IN REACH. BED CHANGED TO WHITE BED. VS MACHINE PLACED IN ROOM. TM
[2019-09-30 11:15] LABS: ERYTHROCYTE SEDIMENTATION RATE 2 mm/hr (0-15)
--- NOTE | 2019-09-30 19:42 | NUR ---
REC'D CHGE OF SHIFTWATCHING TV IN BED. BULKY ACEWRAP DRSG DRY AND INTACT TO RIGHT HAND.FINGERS AND NAILBEDS PINK BLANCHES WITHOUT DIFFICULTY. MINIMAL SWELLING OBSERVED WIGGLES WITHOUT PROBLEMS.WILL CONTINUE TO MONITOR FOR ANY CHGES AND FOLLOW CURRENT PLAN OF CARE.
--- NOTE | 2019-09-30 22:20 | NUR ---
STARTED IV TO RIGHT AC USING 20 GUAGE CATHETER IN ONE STICK. IV FLUIDS AND FISHER TRAMMEL NET RE-STARTED.
[2019-10-01 04:00] VITALS: BP 107/57
--- NOTE | 2019-10-01 05:01 | NUR ---
I have reviewed this patient and I concur with the Shift Assessment completed by the Licensed Practical Nurse today this shift.
[2019-10-01 05:20] LABS: HEMATOCRIT 35.2 % (42.0-54.0); HEMOGLOBIN 11.8 g/dL (13.5-17.5); LYMPHOCYTES 14.1 % (15-50); MCH 29.5 pg (26.0-34.0); MCHC 33.5 g/dL (31.0-37.0); MEAN PLATELET VOLUME 8.5 fL (7.4-10.4); PLATELET COUNT 342 10x3/uL (130-400); RDW 13.9 % (11.5-14.5)
[2019-10-01 05:25] LABS: WBC 7.6 10x3/uL (4.8-10.8)
[2019-10-01 05:35] LABS: ALBUMIN 2.8 g/dL (3.4-5.0); ALKALINE PHOSPHATASE 96 U/L (30-120); ALT (SGPT) 24 U/L (10-68); BILIRUBIN - TOTAL 0.18 mg/dL (0.2-1.3); CALC OSMOLALITY 284 mosm/kg (275-300); CALCIUM 8.5 mg/dL (8.5-10.1); CHLORIDE - SERUM 108 mmol/L (98-107); MAGNESIUM - SERUM 2.2 mg/dL (1.8-2.4); PHOSPHOROUS 3.2 mg/dL (2.5-4.9); POTASSIUM - SERUM 4.3 mmol/L (3.5-5.1); PROTEIN - SERUM 6.5 g/dL (6.4-8.2); SODIUM 141 mmol/L (136-145); UREA NITROGEN 16 mg/dL (7-18); eGFR NON AFRICAN AMERICAN 84 mL/min (90-120)
[2019-10-01 05:50] LABS: GLUCOSE 150 mg/dL (74-106)
--- NOTE | 2019-10-01 08:20 | NUR ---
HE HAS AN YULIYA WRAP ON HIS RIGHT HAND, HE CAN MOVE ALL HIS FINGERS ON THAT HAND. HE HAS A TOOL AND DIE MAKER APPRENTICE AND TORADOL. THE CALL LIGHT IS WITHIN REACH.
--- NOTE | 2019-10-01 09:15 | OP ---
PATIENT NAME: ASHLI BARBER MEDICAL RECORD: [id number] :70 LOCATION:D.MS Sun2202 ADMISSION DATE:09/28/19 SURGEON: DONALD MOY MD DATE OF OPERATION: 09/30/2019 PREOPERATIVE DIAGNOSIS: Abscess, dorsal aspect of the right hand. POSTOPERATIVE DIAGNOSIS: Abscess, dorsal aspect of the right hand. PROCEDURE: Irrigation and debridement (excisional debridement) of abscess, right hand. SURGEON: Donald Moy MD ANESTHESIA: General. INTRAOPERATIVE COMPLICATIONS: None. SUMMARY OF PATHOLOGIC FINDINGS: The patient has a substantial amount of undermining above the fascial plane. The abscess was opened up in 2 directions, then Z-lengthening, and then curettage, rongeur, and scalpel removal were used to debride on this excisional debridement. OPERATIVE SUMMARY IN DETAIL: After obtaining the appropriate preoperative orthopedic surgery consent as well as anesthetic consultation, evaluation, and clearance, the patient was brought to the operating room and placed on the operating table in the supine position. After adequate general laryngeal mask airway was administered, the patient's right upper extremity was prepped and draped in a routine sterile fashion. At this point, the appropriate time-out was taken and agreed upon by all given the patient's unique identifiers. Z-lengthening was done on either side of the patient's abscess, cultures were taken, and the patient had substantial undermining toward the ulnar side approximately 3 cm, ulna distally approximately 2 cm, no substantial undermining radially proximally, a small amount radially distally. After a curettage, rongeur, and scalpel removal of skin, subcutaneous tissue, portions of fat and fascia, wound was copiously irrigated and packed with 1/2-inch iodoform gauze. Sterile dressings were applied. The patient was awakened and taken to the recovery room in stable condition. All final instruments and sponge counts were correct. NTS:[id number] Voice Confirmation ID: [id number] DOCUMENT ID: [id number] DONADL MOY MD at 0915 CC: [id number] DICTATION DATE: 09/30/19 1012 SURGEON CHIEF: 09/30/196 ADM IN [facility] [id number] [place] [address]
[2019-10-01 09:35] VITALS: BP 114/68
[2019-10-01 13:17] VITALS: BP 135/86
[2019-10-01 17:47] VITALS: BP 132/77
[2019-10-01 20:00] VITALS: BP 149/87
[2019-10-02 04:00] VITALS: BP 121/78
--- NOTE | 2019-10-02 06:00 | NUR ---
I have reviewed this patient and I concur with the Shift Assessment completed by the Licensed Practical Nurse today this shift.
[2019-10-02 06:41] LABS: HEMATOCRIT 34.1 % (42.0-54.0); HEMOGLOBIN 11.1 g/dL (13.5-17.5); LYMPHOCYTES 39.6 % (15-50); MCH 28.7 pg (26.0-34.0); MCHC 32.6 g/dL (31.0-37.0); MCV 88.1 fL (80.0-100.0); MEAN PLATELET VOLUME 8.1 fL (7.4-10.4); NEUTROPHILS 56.2 % (40-80); PLATELET COUNT 323 10x3/uL (130-400); RBC 3.87 10x6/uL (4.20-6.10); RDW 13.7 % (11.5-14.5); WBC 7.1 10x3/uL (4.8-10.8)
[2019-10-02 07:12] LABS: ALBUMIN 2.9 g/dL (3.4-5.0); ALKALINE PHOSPHATASE 94 U/L (30-120); BILIRUBIN - TOTAL 0.19 mg/dL (0.2-1.3); CALCIUM 8.8 mg/dL (8.5-10.1); CARBON DIOXIDE 24.9 mmol/L (21.0-32.0); CHLORIDE - SERUM 110 mmol/L (98-107); CREATININE - SERUM 0.9 mg/dL (0.6-1.3); MAGNESIUM - SERUM 2.2 mg/dL (1.8-2.4); POTASSIUM - SERUM 4.2 mmol/L (3.5-5.1); PROTEIN - SERUM 6.3 g/dL (6.4-8.2); SODIUM 143 mmol/L (136-145); UREA NITROGEN 19 mg/dL (7-18); eGFR NON AFRICAN AMERICAN > 90 mL/min (90-120)
[2019-10-02 07:14] LABS: ALT (SGPT) 42 U/L (10-68); CALC OSMOLALITY 285 mosm/kg (275-300); GLUCOSE 82 mg/dL (74-106); PHOSPHOROUS 4.5 mg/dL (2.5-4.9)
--- NOTE | 2019-10-02 08:01 | NUR ---
HE IS ALERT, HAS A OIL FIELD OPERATOR. HIS RIGHT HAND HAS A DRESSING WITH AN YULIYA. HE CAN MOVE HIS FINGERS ON THAT RIGHT HAND, 1 + EDEMA TO THE RIGHT HAND. THE CALL LIGHT IS WITHIN REACH.
[2019-10-02 09:07] VITALS: BP 122/71
[2019-10-02] MEDS ORDERED: OXYCODONE HCL10 MG PO (10:09)
[2019-10-02] MEDS ORDERED: BACTRIM DS TAB1 EAC1 PO (10:09)
[2019-10-02] MEDS ORDERED: NICODERM CQ1 EAC3 TOPICAL (11:30)
[2019-10-02] MEDS ORDERED: NEURONTIN 300300 MG PO (12:17)
--- NOTE | 2019-10-02 12:51 | MORECARE ---
CASE MANAGEMENT DISCHARGE SUMMARY PATIENT: ASHLI BARBER UNIT: [id number] ADM DATE: 09/28/19 AGE: 49 : 70 SEX: M ROOM/BED: D.2202 AUTHOR: KIMO FERMIN PHYSICIAN: REFERRING PHYSICIAN: NOHEMI MONTENEGRO MD DATE OF SERVICE: 10/02/19 Discharge Plan Patient Name: ASHLI BARBER Facility: [facility]:[place] : 1970 Planned Disposition: Home with Home Health Anticipated Discharge Date: Discharge Date: Expected LOS: Initial Reviewer: [email or web address] Initial Review Date: 09/29/2019 Generated: 10/02/19 1:50 pm DCPIA - Discharge Planning Initial Assessment Updated by [email or web address]: Paradise Liriano on 10/02/19 12:51 pm * Is the patient Alert and Oriented? Yes * How many steps to enter\exit or inside your home? 0/2 * PCP MIR * Pharmacy [facility] * Preadmission Environment Home with Family * ADLs Independent * Equipment Cane * List name and contact numbers for known caregivers / representatives who currently or will assist patient after discharge: ZELDA YIN [phone] * Verbal permission to speak to the caregivers and representatives has been obtained from the patient. N/A * Community resources currently utilized None * Additional services required to return to the preadmission environment? Yes * Can the patient safely return to the preadmission environment? Yes * Has this patient been hospitalized within the prior 30 days at any hospital? No Patient Name: ASHLI BARBER Page 52101 at 1251 All edits/amendments must be made on the electronic document DICTATION DATE: 10/02/19 1250 CLIENT SOLUTIONS SPECIALIST: KEIKO 10/02/19 1250 RPT#: [id number] DC DATE: STATUS: ADM IN [facility] [address] [place] [address] END OF REPORT
--- NOTE | 2019-10-02 12:58 | MORECARE ---
CASE MANAGEMENT DISCHARGE SUMMARY PATIENT: ASHLI BARBER UNIT: [id number] ADM DATE: 09/28/19 AGE: 49 : 70 SEX: M ROOM/BED: D.2202 AUTHOR: ZANDER,DOC PHYSICIAN: REFERRING PHYSICIAN: NOHEMI MONTENEGRO MD DATE OF SERVICE: 10/02/19 Discharge Plan Patient Name: ASHLI BARBER Facility: [facility]:[place] : 1970 Planned Disposition: Home with Home Health Anticipated Discharge Date: Discharge Date: Expected LOS: Initial Reviewer: [email or web address] Initial Review Date: 09/29/2019 Generated: 10/02/19 1:58 pm Comments DCP- Discharge Planning Updated by [email or web address]: Paradise Liriano on 10/02/19 11:[address] Patient Name: ASHLI BARBER Admission Status: ER Accout number: [id number] Admission Date: 09-28-2019 : 1970 Admission Diagnosis: Attending: MATT Current LOS: 4 Anticipated DC Date: Planned Disposition: Home with Home Health Primary Insurance: [facility] PRIVATE OPTIONS [place] Discharge Planning Comments: CM met with patient to complete initial dc planning assessment. CM educated patient on the CM role and verbal consent given by patient to complete assessment. Patient lives at home with his aunt, uncle and sister where he is independent with his care. At discharge patient plans to return home and feels this is a safe discharge. CM discussed availability of home health, rehab services, and medical equipment. He uses a cane at times. He will need home health for dressing changes, FAUSTO with [facility]. I have called and spoke with David and sent Referral over. Patient denied any other known discharge needs at this time. CM will continue to follow and will assist as needed with dc plans/needs. Tray Setter: Paradise Liriano DCPIA - Discharge Planning Initial Assessment Updated by [email or web address]: Paradise Liriano on 10/02/19 12:51 pm * Is the patient Alert and Oriented? Yes * How many steps to enter\exit or inside your home? 0/2 * PCP MIR * Pharmacy [facility] * Preadmission Environment Home with Family * ADLs Independent * Equipment Cane * List name and contact numbers for known caregivers / representatives who currently or will assist patient after discharge: ZELDA [place] [phone] * Verbal permission to speak to the caregivers and representatives has been obtained from the patient. N/A * Community resources currently utilized None * Additional services required to return to the preadmission environment? Yes * Can the patient safely return to the preadmission environment? Yes * Has this patient been hospitalized within the prior 30 days at any hospital? No External Providers [facility] Provider[facility] Next Contact Date: Service Request Date: Service Type: Resolution: Reviewer: Comments: Coverage Notice Reviewer: [id number] Uli Liriano Notice Issued Date-Time: 10/02/2019 12:50 Notice Type: Patient Choice Letter Notice Delivered To: Patient Relationship to Patient: Clinical Statistical Programmer Name: Delivery Method: HAND - Hand Delivered Jia Days: Prior Verbal Notification: Recipient Understood Notice: Yes Recipient Signature: Yes Med Rec Note Co-signed by Attending: Coverage Notice Comment: fausto Brewer DP export: 10/02/19 11:51 a Patient Name: ASHLI BARBER Page 29818 at 1258 All edits/amendments must be made on the electronic document DICTATION DATE: 10/02/191257 ASSOCIATE PRINCIPAL: KEIKO 10/02/19 1258 RPT#: [id number] DC DATE: STATUS: ADM IN [facility] [address] [place] [address] END OF REPORT
--- NOTE | 2019-10-02 15:13 | NUR ---
DRESSING CHANGE TO THE RIGHT HAND, IV REMOVED. PAPERWORK GONE OVER WITH AND QUESTIONS ANSWERED. TAKEN TO THE FRONT DOOR VIA WHEELCHAIR. HIS SISTER IS HERE TO GET HIM.
--- NOTE | 2019-10-03 01:33 | MORECARE ---
CASE MANAGEMENT DISCHARGE SUMMARY PATIENT: ASHLI BARBER UNIT: [id number] ADM DATE: 09/28/19 AGE: 49 : 70 SEX: M ROOM/BED: D.2202 AUTHOR: ZANDERDOC PHYSICIAN: REFERRING PHYSICIAN: NOHEMI MONTENEGRO MD DATE OF SERVICE: 10/03/19 Discharge Plan Patient Name: ASHLI BARBER Facility: [facility]:[place] : 1970 Planned Disposition: Home with Home Health Anticipated Discharge Date: Discharge Date: 10/02/2019 Expected LOS: Initial Reviewer: [email or web address] Initial Review Date: 09/29/2019 Generated: 10/03/19 2:33 am Comments DCP- Discharge Planning Updated by [email or web address]: Paradise Liriano on 10/02/19 11:[address] Patient Name: ASHLI BARBER Admission Status: ER Accout number: [id number] Admission Date: 09-28-2019 : 1970 Admission Diagnosis: Attending: MATT Current LOS: 4 Anticipated DC Date: Planned Disposition: Home with Home Health Primary Insurance: [place] PRIVATE OPTIONS [facility] Discharge Planning Comments: CM met with patient to complete initial dc planning assessment. CM educated patient on the CM role and verbal consent given by patient to complete assessment. Patient lives at home with his aunt, uncle and sister where he is independent with his care. At discharge patient plans to return home and feels this is a safe discharge. CM discussed availability of home health, rehab services, and medical equipment. He uses a cane at times. He will need home health for dressing changes, FAUSTO with [facility]. I have called and spoke with David and sent Referral over. Patient denied any other known discharge needs at this time. CM will continue to follow and will assist as needed with dc plans/needs. Geospatial Imagery Intelligence Analyst: Paradise Liriano DCPIA - Discharge Planning Initial Assessment Updated by [email or web address]: Paradise Liriano on 10/02/19 12:51 pm * Is the patient Alert and Oriented? Yes * How many steps to enter\exit or inside your home? 0/2 * PCP MIR * Pharmacy [facility] * Preadmission Environment Home with Family * ADLs Independent * Equipment Cane * List name and contact numbers for known caregivers / representatives who currently or will assist patient after discharge: ZELDA [place] [phone] * Verbal permission to speak to the caregivers and representatives has been obtained from the patient. N/A * Community resources currently utilized None * Additional services required to return to the preadmission environment? Yes * Can the patient safely return to the preadmission environment? Yes * Has this patient been hospitalized within the prior 30 days at any hospital? No Coverage Notice Reviewer: [email or web address] Uli Liriano Notice Issued Date-Time: 10/02/2019 12:50 Notice Type: Patient Choice Letter Notice Delivered To: Patient Relationship to Patient: Binder Lockstitch Name: Delivery Method: HAND - Hand Delivered Ija Days: Prior Verbal Notification: Recipient Understood Notice: Yes Recipient Signature: Yes Med Rec Note Co-signed by Attending: Coverage Notice Comment: fausto riggs Last DP export: 10/02/19 11:58 a Patient Name: ASHLI BARBER Page 51299 at 0133 All edits/amendments must be made on the electronic document DICTATION DATE: 10/03/19132 FLASH DEVELOPER: KEIKO 10/03/19132 RPT#: [id number] DC DATE:10/02/19 STATUS: DIS IN [facility] [address] [place] [address] END OF REPORT
== END 2019-10-02 15:18 | disposition home health service (06) | DRG 580 ==
LOC: D.EDHOLD 20:39 → D.ER 20:39 → D.MS 21:35 → D.EDHOLD 21:35 → D.ER 22:16 → D.EDHOLD 22:16 → D.MS 09-29 12:24
PROVIDERS: Emergency Medicine; Family Medicine Adult Medicine; Orthopaedic Surgery; ADMIT Family Medicine; ATTEND Family Medicine
PROC: 0JBJ0ZZ Excision of Right Hand Subcutaneous Tissue and Fascia, Open Approach (ICD-10-PCS; principal; 2019-09-30 13:15)
DX: L03.113 Cellulitis of right upper limb (principal); F17.213 Nicotine dependence, cigarettes, with withdrawal; G62.9 Polyneuropathy, unspecified; K21.9 Gastro-esophageal reflux disease without esophagitis; N40.0 Benign prostatic hyperplasia without lower urinary tract symptoms; F41.8 Other specified anxiety disorders; G47.00 Insomnia, unspecified; F12.90 Cannabis use, unspecified, uncomplicated

== ENCOUNTER 2020-07-06 10:16 | Inpatient (IN) | payer MEDICARE, MEDICAID ==
[~2020-07-06] VITALS: Ht 185.4 cm; Wt 105.7 kg
[~2020-07-06 10:16] MED LIST changes: +BACTRIM DS TAB1 EAC1 PO; +CLEOCIN HCL150 MG PO; +NICODERM CQ1 EAC3 TOPICAL; +OXYCODONE HCL10 MG PO
[2020-07-06] MEDS ORDERED: BELBUCA (10:24)
[2020-07-06] MEDS ORDERED: CELEBREX200 MG PO (10:24)
[2020-07-06 10:54] LABS: BASOPHILS 0.1 % (0-2); HEMATOCRIT 38.4 % (42.0-54.0); HEMOGLOBIN 13.1 g/dL (13.5-17.5); IMMATURE GRANULOCYTES 0.2 % (0-5); LYMPHOCYTE ABS# 2.18 10x3/uL (1.32-3.57); LYMPHOCYTES 23.6 % (15-50); MCH 28.4 pg (26.0-34.0); MCHC 34.1 g/dL (31.0-37.0); MCV 83.3 fL (80.0-100.0); MEAN PLATELET VOLUME 8.7 fL (7.4-10.4); MONOCYTES 6.8 % (2-11); NEUTROPHIL ABS# 6.32 10x3/uL (1.78-5.38); NEUTROPHILS 68.3 % (40-80); RBC 4.61 10x6/uL (4.20-6.10); RDW 13.5 % (11.5-14.5); WBC 9.3 10x3/uL (4.8-10.8)
[2020-07-06 10:56] LABS: PLATELET COUNT 242 10x3/uL (130-400)
[2020-07-06 11:04] LABS: CALC OSMOLALITY 282 mosm/kg (275-300); CALCIUM 9.4 mg/dL (8.5-10.1); CARBON DIOXIDE 26.8 mmol/L (21.0-32.0); CHLORIDE - SERUM 103 mmol/L (98-107); GLUCOSE 141 mg/dL (74-106); POTASSIUM - SERUM 4.1 mmol/L (3.5-5.1); SODIUM 139 mmol/L (136-145); UREA NITROGEN 20 mg/dL (7-18); eGFR NON AFRICAN AMERICAN 84 mL/min (90-120)
[2020-07-06 11:10] LABS: ALBUMIN 3.7 g/dL (3.4-5.0); ALKALINE PHOSPHATASE 138 U/L (30-120); ALT (SGPT) 24 U/L (10-68); BILIRUBIN - TOTAL 0.43 mg/dL (0.2-1.3); PROTEIN - SERUM 7.9 g/dL (6.4-8.2)
[2020-07-06 13:11] LABS: UDS - AMPHET NEGATIVE QUAL (NEGATIVE); UDS - BARB NEGATIVE QUAL (NEGATIVE); UDS - BENZO NEGATIVE QUAL (NEGATIVE); UDS - COCAINE NEGATIVE QUAL (NEGATIVE); UDS - OPIATE POSITIVE QUAL (NEGATIVE); UDS - PCP NEGATIVE QUAL (NEGATIVE); UDS - THC NEGATIVE QUAL (NEGATIVE)
--- NOTE | 2020-07-06 15:12 | NUR ---
IV SITED AFTER 4 ATTEMPTS. IV ANTIBIOTICS INITIATED.
--- NOTE | 2020-07-06 18:00 | NUR ---
REPORT CALLED TO [facility] II.
--- NOTE | 2020-07-06 18:13 | NUR ---
ARRIVE TO ROOM VIA WHEELCHAIR. ALERT AND ORIENTED X4. AMBULATES TO BED WITHOUT ASSISTANCE. GAIT STEADY. LT HAND IV INFUSING ORDERED. REFUSE SCDs. RECIEVES LOVENOX INJ. CONTINUE ADMISSION PROCESS AND SAFETY PRECAUTIONS.
[2020-07-06 18:29] VITALS: BP 122/88; BMI 30.8
--- NOTE | 2020-07-06 19:15 | NUR ---
AMBULATING IN [place], GAIT STEADY.
[2020-07-06 20:00] VITALS: BP 132/95
--- NOTE | 2020-07-06 23:23 | NUR ---
HS SNACK PROVIDED, REMINDED PT OF NOTHING TO EAT OR DRINK AFTER MN, PT STATED UNDERSTANDING.
[2020-07-07] VITALS: BP 122/68
--- NOTE | 2020-07-07 03:23 | NUR ---
RESTING WITH EYES CLOSED, NO S/S DISTRESS NOTED.
[2020-07-07 05:46] LABS: BASOPHILS 0 % (0-2); EOSINOPHILS 0.5 % (0-7); HEMATOCRIT 34.2 % (42.0-54.0); HEMOGLOBIN 11.5 g/dL (13.5-17.5); IMMATURE GRANULOCYTES 0.1 % (0-5); LYMPHOCYTE ABS# 2.06 10x3/uL (1.32-3.57); LYMPHOCYTES 22.5 % (15-50); MCH 28.2 pg (26.0-34.0); MCHC 33.6 g/dL (31.0-37.0); MCV 83.8 fL (80.0-100.0); MEAN PLATELET VOLUME 9.1 fL (7.4-10.4); MONOCYTES 7.6 % (2-11); NEUTROPHIL ABS# 6.35 10x3/uL (1.78-5.38); NEUTROPHILS 69.3 % (40-80); PLATELET COUNT 239 10x3/uL (130-400); RBC 4.08 10x6/uL (4.20-6.10); RDW 13.4 % (11.5-14.5); WBC 9.2 10x3/uL (4.8-10.8)
[2020-07-07 06:19] LABS: ALKALINE PHOSPHATASE 115 U/L (30-120); ALT (SGPT) 18 U/L (10-68); BILIRUBIN - TOTAL 0.25 mg/dL (0.2-1.3); CALC OSMOLALITY 281 mosm/kg (275-300); CALCIUM 8.7 mg/dL (8.5-10.1); CARBON DIOXIDE 25.8 mmol/L (21.0-32.0); CHLORIDE - SERUM 106 mmol/L (98-107); CREATININE - SERUM 0.9 mg/dL (0.6-1.3); GLUCOSE 142 mg/dL (74-106); MAGNESIUM - SERUM 2.4 mg/dL (1.8-2.4); POTASSIUM - SERUM 4.1 mmol/L (3.5-5.1); SODIUM 140 mmol/L (136-145); UREA NITROGEN 16 mg/dL (7-18); eGFR NON AFRICAN AMERICAN > 90 mL/min (90-120)
--- NOTE | 2020-07-07 06:25 | NUR ---
I have reviewed this patient and I concur with the Shift Assessment completed by the Licensed Practical Nurse today this shift.
[2020-07-07 07:10] LABS: APTT 34.4 SECONDS (22.8-39.4); INR 1.15 (0.85-1.17); PROTIME 13.6 SECONDS (11.6-15.0)
[2020-07-07 08:19] VITALS: BP 111/65
[2020-07-07 13:24] VITALS: BP 105/66
[2020-07-07 14:30] VITALS: Ht 185.4 cm; Wt 105.7 kg
[2020-07-07 15:47] VITALS: BP 119/71
--- NOTE | 2020-07-07 17:11 | NUR ---
ALERT AND ORIENTED X4. SITTING UP IN CHAIR. CONSENTS FOR PROCEDURE SIGNED ON CHART. CONTINUE PAIN MANAGEMENT ORDERED. DENIES ANY OTHER NEEDS. CONTINUE PLAN OF CARE AND SAFETY PRECAUTIONS.
[2020-07-07 20:00] VITALS: BP 133/77
[2020-07-08] VITALS: BP 122/74
[2020-07-08 04:00] VITALS: BP 126/77
[2020-07-08 05:52] LABS: BASOPHILS 0.1 % (0-2); EOSINOPHILS 0.8 % (0-7); HEMATOCRIT 33.6 % (42.0-54.0); IMMATURE GRANULOCYTES 0.2 % (0-5); LYMPHOCYTE ABS# 2.21 10x3/uL (1.32-3.57); LYMPHOCYTES 23.8 % (15-50); MCH 27.9 pg (26.0-34.0); MCHC 32.7 g/dL (31.0-37.0); MCV 85.3 fL (80.0-100.0); MEAN PLATELET VOLUME 9.2 fL (7.4-10.4); MONOCYTES 5.8 % (2-11); NEUTROPHIL ABS# 6.44 10x3/uL (1.78-5.38); NEUTROPHILS 69.3 % (40-80); PLATELET COUNT 235 10x3/uL (130-400); RBC 3.94 10x6/uL (4.20-6.10); RDW 13.3 % (11.5-14.5); WBC 9.3 10x3/uL (4.8-10.8)
[2020-07-08 06:27] LABS: ALKALINE PHOSPHATASE 112 U/L (30-120); ALT (SGPT) 17 U/L (10-68); BILIRUBIN - TOTAL 0.19 mg/dL (0.2-1.3); CALC OSMOLALITY 288 mosm/kg (275-300); CALCIUM 8.4 mg/dL (8.5-10.1); CARBON DIOXIDE 22.3 mmol/L (21.0-32.0); CHLORIDE - SERUM 110 mmol/L (98-107); CREATININE - SERUM 0.9 mg/dL (0.6-1.3); GLUCOSE 114 mg/dL (74-106); MAGNESIUM - SERUM 2.3 mg/dL (1.8-2.4); POTASSIUM - SERUM 4.4 mmol/L (3.5-5.1); PROTEIN - SERUM 6.3 g/dL (6.4-8.2); SODIUM 143 mmol/L (136-145); eGFR NON AFRICAN AMERICAN > 90 mL/min (90-120)
[2020-07-08 06:31] LABS: UREA NITROGEN 22 mg/dL (7-18)
--- NOTE | 2020-07-08 07:56 | NUR ---
patient has been pre oped at this time.
--- NOTE | 2020-07-08 08:15 | NUR ---
new iv started to his right wrist, 22 g . patient being taken to surgery at this time
[2020-07-08 08:17] VITALS: BP 141/90
--- NOTE | 2020-07-08 14:35 | OP ---
PATIENT NAME: SHAVON BARBER MEDICAL RECORD: [id number] :70 LOCATION:D.M2 D.2136 ADMISSION DATE:07/06/20 SURGEON: DENAE YEE DO DATE OF OPERATION: 07/08/2020 PROCEDURE PERFORMED: Right arm abscess incision and debridement. PREOPERATIVE DIAGNOSIS: Right arm abscess. POSTOPERATIVE DIAGNOSIS: Right arm abscess. INDICATIONS: Mr. Shavon Barber is a 50-year-old male who had an abscess developed over his right upper arm just over the biceps area. MRI was done showing an abscess there as well as thrombophlebitis. I told him due to the abscess, I probably need open it up to give him some pressure relief and to get it to drain. He said he got it from a thorn and did developed over the last few days. He was admitted and put on IV antibiotics. I informed of the risks of this including recurrence, damage to nerves, vessels in the area, continued pain, need for further surgery, blood loss, further infection, and pain and loss of motion in the arm and he signed the consent. SURGEON: Denae Yee DO DESCRIPTION OF PROCEDURE: The patient was taken to the operative suite, laid in supine position, given general anesthetic and LMA was placed. He had been on antibiotics on the floor. The right arm was prepped and draped in sterile fashion. A timeout was performed. Everyone was in agreement with correct side, site, patient and procedure. I then made an incision over the abscess, over the upper volar arm more to the radial side and since I made an incision, copious amounts of purulent material or liquid poured out of the incision. I then used a hemostat to open it up more and more purulent fluid came out. We then cultured that. I then irrigated with 3 liters normal saline until there is no purulent material using a hemostat to debride the area as well as any devitalized tissue. I then packed it with iodoform gauze. He was wrapped with a soft dressing, awakened and taken to recovery in stable condition. BLOOD LOSS: Minimal. COMPLICATIONS: None. TRANSINT:[id number] Voice Confirmation ID: [id number] DOCUMENT ID: [id number] DENAE YEE DO at 1435 CC: [id number] DICTATION DATE: 07/08/20 0934 PRICING ACTUARY: 07/08/20 1255 ADM IN [facility] [address] [id number]
[2020-07-08 20:00] VITALS: BP 150/67
--- NOTE | 2020-07-08 20:56 | NUR ---
PT SETTING UP IN CHAIR, AAO X 4, RESP EVEN AND UNLABORED,NO DISTRESS NOTED, CL IN REACH.
[2020-07-09] VITALS: BP 188/88
--- NOTE | 2020-07-09 03:41 | NUR ---
I have reviewed this patient and I concur with the Shift Assessment completed by the Licensed Practical Nurse today this shift.
[2020-07-09 04:00] VITALS: BP 197/83
[2020-07-09 05:13] LABS: BASOPHILS 0 % (0-2); EOSINOPHILS 0 % (0-7); HEMOGLOBIN 10.9 g/dL (13.5-17.5); IMMATURE GRANULOCYTES 0.1 % (0-5); LYMPHOCYTE ABS# 1.99 10x3/uL (1.32-3.57); LYMPHOCYTES 25.8 % (15-50); MCH 27.8 pg (26.0-34.0); MCV 84.2 fL (80.0-100.0); MONOCYTES 5.6 % (2-11); NEUTROPHIL ABS# 5.28 10x3/uL (1.78-5.38); NEUTROPHILS 68.5 % (40-80); PLATELET COUNT 243 10x3/uL (130-400); RBC 3.92 10x6/uL (4.20-6.10); RDW 13.3 % (11.5-14.5); WBC 7.7 10x3/uL (4.8-10.8)
[2020-07-09 05:32] LABS: ALBUMIN 2.9 g/dL (3.4-5.0); ALKALINE PHOSPHATASE 106 U/L (30-120); ALT (SGPT) 15 U/L (10-68); BILIRUBIN - TOTAL 0.22 mg/dL (0.2-1.3); CALC OSMOLALITY 286 mosm/kg (275-300); CALCIUM 8.7 mg/dL (8.5-10.1); CARBON DIOXIDE 23.3 mmol/L (21.0-32.0); CHLORIDE - SERUM 108 mmol/L (98-107); CREATININE - SERUM 0.9 mg/dL (0.6-1.3); GLUCOSE 125 mg/dL (74-106); MAGNESIUM - SERUM 2.1 mg/dL (1.8-2.4); PROTEIN - SERUM 6.9 g/dL (6.4-8.2); SODIUM 142 mmol/L (136-145); UREA NITROGEN 20 mg/dL (7-18); eGFR NON AFRICAN AMERICAN > 90 mL/min (90-120)
[2020-07-09 07:58] VITALS: BP 140/80
--- NOTE | 2020-07-09 10:15 | NUR ---
PATIENT AAOX4, RESP EVEN AND NON LABORED, MEDICATIONS ADMINSITERED WITH NO COMPLICATIONS, NO FURTHER NEEDS AT THIS TIME, ICE AND SPRITES PROVIDED, CLIR, PATIENT IS SITTING IN BEDSIDE CHAIR.
[2020-07-09 11:12] VITALS: BP 170/100
--- NOTE | 2020-07-09 14:23 | NUR ---
Nutrition Follow-up: POD 1 R arm I&D. Eating well. BP elevated; 170/100 @ 1100. Noted plans to d/c soon. Diet: Regular No new wt; last wt: 230# (07/07) Labs noted: Glu 125, Alb 2.9 Meds noted: Florajen, Humulin, NS @ 125, electrolyte protocol -Change to cardiac diet 2/2 elevated BP. -RD will follow up within 5-7 days if pt still admitted.
[2020-07-09 14:49] VITALS: BP 142/83
--- NOTE | 2020-07-09 18:00 | NUR ---
I have reviewed this patient and I concur with the Shift Assessment completed by the Licensed Practical Nurse today this shift.
--- NOTE | 2020-07-09 19:30 | NUR ---
PT IN CHAIR, AAO X 4, PT RESP EVEN AND UNLABORED, REGULATORY COMPLIANCE OFFICER D/C'D,NO DISTRESS NOTED, CL IN REACH, SR UP X 2.
[2020-07-09 19:46] VITALS: BP 142/85
[2020-07-10 03:50] VITALS: BP 122/77
--- NOTE | 2020-07-10 04:42 | NUR ---
I have reviewed this patient and I concur with the Shift Assessment completed by the Licensed Practical Nurse today this shift.
[2020-07-10 05:42] LABS: BASOPHILS 0.1 % (0-2); EOSINOPHILS 0.8 % (0-7); HEMATOCRIT 36.5 % (42.0-54.0); HEMOGLOBIN 12.1 g/dL (13.5-17.5); IMMATURE GRANULOCYTES 0.4 % (0-5); LYMPHOCYTE ABS# 2.93 10x3/uL (1.32-3.57); LYMPHOCYTES 38.1 % (15-50); MCH 27.9 pg (26.0-34.0); MCHC 33.2 g/dL (31.0-37.0); MCV 84.1 fL (80.0-100.0); MEAN PLATELET VOLUME 9.4 fL (7.4-10.4); NEUTROPHILS 54.6 % (40-80); RBC 4.34 10x6/uL (4.20-6.10); RDW 13.2 % (11.5-14.5); WBC 7.7 10x3/uL (4.8-10.8)
[2020-07-10 05:48] LABS: PLATELET COUNT 329 10x3/uL (130-400)
[2020-07-10 05:53] LABS: ALBUMIN 3.1 g/dL (3.4-5.0); ALKALINE PHOSPHATASE 103 U/L (30-120); BILIRUBIN - TOTAL 0.12 mg/dL (0.2-1.3); CALC OSMOLALITY 288 mosm/kg (275-300); CALCIUM 9.1 mg/dL (8.5-10.1); CARBON DIOXIDE 23.8 mmol/L (21.0-32.0); CHLORIDE - SERUM 107 mmol/L (98-107); CREATININE - SERUM 0.8 mg/dL (0.6-1.3); GLUCOSE 122 mg/dL (74-106); MAGNESIUM - SERUM 1.8 mg/dL (1.8-2.4); POTASSIUM - SERUM 3.8 mmol/L (3.5-5.1); PROTEIN - SERUM 7.2 g/dL (6.4-8.2); SODIUM 143 mmol/L (136-145); UREA NITROGEN 21 mg/dL (7-18); eGFR NON AFRICAN AMERICAN > 90 mL/min (90-120)
[2020-07-10 06:00] LABS: ALT (SGPT) 19 U/L (10-68)
[2020-07-10 09:10] VITALS: BP 134/91
--- NOTE | 2020-07-10 09:21 | NUR ---
PATIENT AAOX4 IN BEDSIDE CHAIR WATCHING TV, NO S/S OF DISTRESS, RESP EVEN AND NON LABORED, MEDICTAIONS ADMINISTERED WITH NO COMPLICATIONS, NO FURTHER NEEDS AT THIS TIME, ICE AND SPRITE PROVIDED, REYNALDO GONSALVES
[2020-07-10 12:59] VITALS: BP 146/90
--- NOTE | 2020-07-10 19:30 | NUR ---
PT UP IN CHAIR, RESP EVEN AND UNLABORED, NO DISTRESS NOTED, CL IN REACH, NO C/O PAIN OR DISCOMFORT AT THIS TIME.
[2020-07-10 20:44] VITALS: BP 147/91
[2020-07-10 23:36] VITALS: BP 139/88
--- NOTE | 2020-07-10 23:44 | NUR ---
PACKING REMOVED FROM PT RIGHT UPPER ARM, REPACKED WITH 1/4" IODOFORM GAUZE USING STERILE TECHNIQUE AT THIS TIME, PT TOLERATED BUT REQUESTING PAIN MED. NO DISTRESS NOTED, CL IN REACH.
--- NOTE | 2020-07-11 03:19 | NUR ---
I have reviewed this patient and I concur with the Shift Assessment completed by the Licensed Practical Nurse today this shift.
[2020-07-11 03:53] VITALS: BP 129/79
[2020-07-11 06:20] LABS: BASOPHILS 0.2 % (0-2); HEMATOCRIT 37.9 % (42.0-54.0); HEMOGLOBIN 12.9 g/dL (13.5-17.5); IMMATURE GRANULOCYTES 0.5 % (0-5); LYMPHOCYTE ABS# 2.09 10x3/uL (1.32-3.57); LYMPHOCYTES 35.6 % (15-50); MCH 28.2 pg (26.0-34.0); MCV 82.9 fL (80.0-100.0); MEAN PLATELET VOLUME 8.8 fL (7.4-10.4); MONOCYTES 5.8 % (2-11); NEUTROPHIL ABS# 3.34 10x3/uL (1.78-5.38); NEUTROPHILS 56.9 % (40-80); PLATELET COUNT 339 10x3/uL (130-400); RBC 4.57 10x6/uL (4.20-6.10); WBC 5.9 10x3/uL (4.8-10.8)
[2020-07-11 06:45] LABS: ALBUMIN 3.2 g/dL (3.4-5.0); ALKALINE PHOSPHATASE 110 U/L (30-120); BILIRUBIN - TOTAL 0.19 mg/dL (0.2-1.3); CALC OSMOLALITY 287 mosm/kg (275-300); CALCIUM 9.4 mg/dL (8.5-10.1); CARBON DIOXIDE 27.9 mmol/L (21.0-32.0); CHLORIDE - SERUM 105 mmol/L (98-107); GLUCOSE 135 mg/dL (74-106); MAGNESIUM - SERUM 1.8 mg/dL (1.8-2.4); POTASSIUM - SERUM 3.5 mmol/L (3.5-5.1); PROTEIN - SERUM 7.4 g/dL (6.4-8.2); SODIUM 142 mmol/L (136-145); UREA NITROGEN 22 mg/dL (7-18)
[2020-07-11 06:48] LABS: ALT (SGPT) 34 U/L (10-68); CREATININE - SERUM 1.1 mg/dL (0.6-1.3); eGFR NON AFRICAN AMERICAN 75 mL/min (90-120)
[2020-07-11 07:49] VITALS: BP 129/82
[2020-07-11] MEDS ORDERED: ADOXA100 MG PO (10:05)
[2020-07-11] MEDS ORDERED: OMNICEF300 MG PO (10:06)
--- NOTE | 2020-07-11 11:46 | NUR ---
PT'S PHARMACY CLOSED FOR WEEKEND. CALL DOXYCYCLINE AND OMNICEF TO [facility] ON [facility]PORT REQUESTED.
--- NOTE | 2020-07-11 11:51 | NUR ---
DISCUSSED DISCHARGE PAPERS WITH PATIENT, TREATED WITH PAIN PILL FOR C/O PAIN 08/27. TRANSPORT CALLED AND SISTER WAITING IN ER.
[2020-07-11 11:55] VITALS: BP 111/62; BP 140/60
--- NOTE | 2020-07-11 11:56 | MORECARE ---
CASE MANAGEMENT DISCHARGE SUMMARY PATIENT: ASHLI BARBER UNIT: [id number] ADM DATE: 07/06/20 AGE: 50 : 70 SEX: M ROOM/BED: D.2136 AUTHOR: ZANDER,KIMO PHYSICIAN: REFERRING PHYSICIAN: ZELALEM LONG MD DATE OF SERVICE: 07/11/20 Case Management Discharge Planning Summary COMMENTS ENTERED DATE: 07/11/20 11:44 CT COMMENT TYPE: Discharge Planning REVIEWER: Jabier Bob CM met with patient to complete DC plan and to evaluate needs. Patient lives alone with family support. Patient stated that his home is safe and has electricity and running water. Patient stated that the home has 2 steps to enter and they are able to manage the steps without difficulty. Patient stated that he is in between insurances and would like for his prescriptions to be written out so that he can find the best bargain through [facility]. Patient stated that his primary care physician is Dr. Quinonez. At discharge, the patient plans to return home and feels this is a safe discharge. CM discussed availability of home health, rehab services, and medical equipment. Patient declined SNF, IPR, and DME. Patient stated that he wants [facility]. Spoke with [facility]. [facility] is capped for Human and Medicaid. Patient agreed to try [facility]. Spoke with Polly Bowens. Polly stated that SOC will be Monday. Patient is in agreement with plan, stating that his sister can pack his wound on Monday until SOC of HHS on Monday. Awaiting decision. MARY signed for [facility] and placed on chart. Patient voiced no other needs at this time and is satisfied with DC plan. Transportation provider at discharge will be with his sister, Christiano Castro, . DC IMM delivered, explained, signed by the patient, and placed in chart. Signed form also left with the patient. CM will continue to follow and will assist as needed with dc plans/needs. DCP REVIEW SUMMARY ANTICIPATED D/C DATE: 07/11/2020 EXPECTED LOS : 5 CASE STATUS: DCP Initiated INITIAL REVIEW: 07/06/2020 INITIAL REVIEWER: Jabier Bob FINAL DISCHARGE DISPOSITION: : FINAL REVIEWER: FINAL REVIEW DATE: DCP Focus Questions & Answers DCP Evaluation QUESTION: ANSWER Patient gives permission to discuss discharge plans with: (name, relationship and number) : sisterChristiano, Patient's ability to cope with chronic illness : d. No chronic illness Patient's current cognitive status: : *Oriented to person, place, situation, time and present Family / Caregiver's ability to cope with chronic illness: : a. Adequate (ability to meet patient's medical needs, ensures patient attends medical appts.) Patient and/or caregiver agree upon recommended discharge plan? : Yes Physical Status: : Independent with ADL's Family / Caregiver's ability to cope with chronic illness: : a. Adequate (ability to meet patient's medical needs, ensures patient attends medical appts.) Functional screen assessment: : Basic needs can adequately be met by self Does the patient have the ability to pay for or attain post discharge needs / services? : Yes Living Arrangements: : Home with Extended Family Is there a likelihood that the patient will require additional services to return to the preadmission environment? : Yes Equipment needed for post hospitalization: : None Baseline cognitive status: : *Oriented to person, place, situation, time and present Patient with capacity for self-care or can be cared for in same environment as prior to hospitalization? : Yes Physical environment modification needed / anticipated for discharge: : No Medication Management: : Patient states can afford medications Medication Management: : Patient states can read and understand medication labels Pharmacy name(s): : NO PHARMACY AT THIS TIME Does Patient have transportation to get home and to follow-up medical appointments when discharged from the hospital? : Yes Would patient like to participate in any Care Coordination programs (if applicable): : Not applicable Does the patient have electricity at home? : Yes Does the patient have running water in their house? : Yes Equipment in use: : None Mental health screen: : No mental health history DCP Re-evaluation QUESTION: ANSWER Would patient like to participate in any Care Coordination programs (if applicable): : Not applicable PATIENT: ASHLI BARBER ENCOUNTER: [id number] MEDICAL RECORD#: [id number] ADMISSION DATE: 07/06/2020 DISCHARGE DATE: ATTENDING MD: ZELALEM COKER : AGE: 50 MARITAL STATUS: S DC PLAN ID: [id number] FACILITY: [facility] PRINTED ON: 07/11/20 11:56 CT All edits/amendments must be made on the electronic document DICTATION DATE: 07/11/20 115 CARGO SURVEYOR: KEIKO 07/11/20 1156 RPT#: [id number] DC DATE: STATUS: ADM IN [facility] [address] [place] [address] END OF REPORT
[2020-07-12 16:07] LABS: AEROBE ID Final report (())
--- NOTE | 2020-07-13 09:05 | MORECARE ---
CASE MANAGEMENT DISCHARGE SUMMARY PATIENT: ASHLI BARBER UNIT: [id number] ADM DATE: 07/06/20 AGE: 50 : 70 SEX: M ROOM/BED: D.2136 AUTHOR: KIMO FERMIN PHYSICIAN: REFERRING PHYSICIAN: ZELALEM LONG MD DATE OF SERVICE: 07/13/20 Case Management Discharge Planning Summary COMMENTS ENTERED DATE: 07/11/20 11:44 CT COMMENT TYPE: Discharge Planning REVIEWER: Jabier Bob CM met with patient to complete DC plan and to evaluate needs. Patient lives alone with family support. Patient stated that his home is safe and has electricity and running water. Patient stated that the home has 2 steps to enter and they are able to manage the steps without difficulty. Patient stated that he is in between insurances and would like for his prescriptions to be written out so that he can find the best bargain through [facility]. Patient stated that his primary care physician is Dr. Quinonez. At discharge, the patient plans to return home and feels this is a safe discharge. CM discussed availability of home health, rehab services, and medical equipment. Patient declined SNF, IPR, and DME. Patient stated that he wants [facility]. Spoke with [facility]. [facility] is capped for Human and Medicaid. Patient agreed to try [facility]. Spoke with Polly Bowens. Polly stated that SOC will be Monday. Patient is in agreement with plan, stating that his sister can pack his wound on Monday until SOC of HHS on Monday. Awaiting decision. MARY signed for [facility] and placed on chart. Patient voiced no other needs at this time and is satisfied with DC plan. Transportation provider at discharge will be with his sister, Christiano Castro, . DC IMM delivered, explained, signed by the patient, and placed in chart. Signed form also left with the patient. CM will continue to follow and will assist as needed with dc plans/needs. DCP REVIEW SUMMARY ANTICIPATED D/C DATE: 07/11/2020 EXPECTED LOS : 5 CASE STATUS: DCP Initiated INITIAL REVIEW: 07/06/2020 INITIAL REVIEWER: Jabier Bob FINAL DISCHARGE DISPOSITION: : FINAL REVIEWER: FINAL REVIEW DATE: DCP Focus Questions & Answers DCP Evaluation QUESTION: ANSWER Patient's current cognitive status: : *Oriented to person, place, situation, time and present Patient's ability to cope with chronic illness : d. No chronic illness Patient gives permission to discuss discharge plans with: (name, relationship and number) : Christiano son, Patient and/or caregiver agree upon recommended discharge plan? : Yes Family / Caregiver's ability to cope with chronic illness: : a. Adequate (ability to meet patient's medical needs, ensures patient attends medical appts.) Functional screen assessment: : Basic needs can adequately be met by self Physical Status: : Independent with ADL's Does the patient have the ability to pay for or attain post discharge needs / services? : Yes Family / Caregiver's ability to cope with chronic illness: : a. Adequate (ability to meet patient's medical needs, ensures patient attends medical appts.) Equipment needed for post hospitalization: : None Is there a likelihood that the patient will require additional services to return to the preadmission environment? : Yes Living Arrangements: : Home with Extended Family Baseline cognitive status: : *Oriented to person, place, situation, time and present Patient with capacity for self-care or can be cared for in same environment as prior to hospitalization? : Yes Physical environment modification needed / anticipated for discharge: : No Medication Management: : Patient states can afford medications Medication Management: : Patient states can read and understand medication labels Pharmacy name(s): : NO PHARMACY AT THIS TIME Does Patient have transportation to get home and to follow-up medical appointments when discharged from the hospital? : Yes Would patient like to participate in any Care Coordination programs (if applicable): : Not applicable Does the patient have electricity at home? : Yes Does the patient have running water in their house? : Yes Equipment in use: : None Mental health screen: : No mental health history DCP Re-evaluation QUESTION: ANSWER Would patient like to participate in any Care Coordination programs (if applicable): : Not applicable PATIENT: ASHLI BARBER ENCOUNTER: [id number] MEDICAL RECORD#: [id number] ADMISSION DATE: 07/06/2020 DISCHARGE DATE: 07/11/2020 ATTENDING MD: ZELALEM COKER : AGE: 50 MARITAL STATUS: S DC PLAN ID: [id number] FACILITY: [facility] PRINTED ON: 07/13/20 9:05 CT All edits/amendments must be made on the electronic document DICTATION DATE: 07/13/20904 HUNTER SKIN DIVER: KEIKO 07/13/20904 RPT#: [id number] DC DATE:07/11/20 STATUS: DIS IN [facility] [address] [place] [address] END OF REPORT
[2020-07-13 15:11] LABS: AEROBE ID Preliminary report (()); RESULT 1 Gram positive cocci (())
== END 2020-07-11 12:15 | disposition home health service (06) | DRG 581 ==
LOC: D.ER 10:16 → D.M2 16:14
PROVIDERS: Emergency Medicine; Family Medicine; Orthopaedic Surgery; ADMIT Family Medicine; ATTEND Family Medicine
PROC: 0JDD0ZZ Extraction of Right Upper Arm Subcutaneous Tissue and Fascia, Open Approach (ICD-10-PCS; principal; 2020-07-08 08:00)
DX: L02.413 Cutaneous abscess of right upper limb (principal); M65.821 Other synovitis and tenosynovitis, right upper arm; L03.113 Cellulitis of right upper limb; M79.621 Pain in right upper arm; I10 Essential (primary) hypertension; K21.9 Gastro-esophageal reflux disease without esophagitis

== ENCOUNTER 2020-08-16 15:25 | Inpatient (IN) | payer MEDICARE, MEDICAID ==
[~2020-08-16] VITALS: Ht 185.4 cm; Wt 90.9 kg
--- NOTE | ~2020-08-16 | OP ---
PATIENT NAME: ASHLI FREED MEDICAL RECORD: [id number] :70 LOCATION:D.MS Sun2210 ADMISSION DATE:08/16/20 SURGEON: ROSE FLORES MD DATE OF OPERATION: 08/20/2020 PREOPERATIVE DIAGNOSIS: Abscess, right antecubital fossa, status post incision and drainage with VAC placement. POSTOPERATIVE DIAGNOSIS: Abscess, right antecubital fossa, status post incision and drainage with VAC placement. PROCEDURE PERFORMED: 1. Irrigation and debridement of right elbow (skin and subcutaneous tissue). 2. Closure of complex wound, right elbow (5 cm). INDICATIONS: Mr. Freed is a 50-year-old male who was seen in the Emergency Department on Monday with complaints of right elbow pain, swelling, and redness. He was found to have a subcutaneous abscess, was taken to the operating room on Monday for I and D. Cultures have been positive for gram-positive cocci and bacillus. He has been on IV antibiotics and returned to the operating room today for repeat I and D with wound VAC change versus closure. Risks, benefits, and alternatives of surgery were discussed with the patient and consent was obtained. DESCRIPTION OF PROCEDURE: The patient was met in the holding area where his identity and confirmation of procedure was performed. The right upper extremity was marked. He was taken to the operating room. He was placed supine on the operating table, and anesthesia was administered. Tourniquet was applied to the right arm and the right arm was prepped and draped in a sterile fashion. The patient is on scheduled antibiotics; therefore, did not receive immediately preop. A timeout was performed before initiating the case. On initiation of the case, the wound was explored and noted to have good granulation tissue throughout the wound bed. The skin laterally was still a little erythematous and indurated, but did not appear to have any deep necrosis or infection present. The wound was irrigated thoroughly with saline. There were a couple veins bleeding from the subcutaneous tissues that were cauterized. We then proceeded with closure of the complex wound to the antecubital fossa measuring 5 cm. The deep tissues were closed with 2-0 PDS and the skin was closed with nylon. A sterile dressing was placed. The patient was turned back over to anesthesia where he was awakened and taken to recovery room in stable condition. POSTOPERATIVE PLAN: The patient is going to return to the floor for continued postoperative care. We will continue his IV antibiotics for now and then transition these to p.o. antibiotics once his cultures are finalized. If he is able to return home with p.o. antibiotics, we will see him back in 1 week for a wound check. COMPLICATIONS: None. ESTIMATED BLOOD LOSS: 25 mL. ANESTHESIA: General. TRANSINT:[id number] Voice Confirmation ID: [id number] DOCUMENT ID: [id number] OPERATIVE REPORT [id number] ASHLI FREED BRENT M MD CC: [id number] DICTATION DATE: 08/20/20 1538 MARINE GEAR KEEPER: 08/20/20 2214 ADM IN [facility] [address] [place] [id number]
[~2020-08-16 15:25] MED LIST changes: +ADOXA100 MG PO; +BELBUCA PO; +OMNICEF300 MG PO
[2020-08-16 16:32] LABS: BASOPHILS 0.5 % (0-2); EOSINOPHILS 1.1 % (0-7); HEMATOCRIT 40.4 % (42.0-54.0); HEMOGLOBIN 13.9 g/dL (13.5-17.5); LYMPHOCYTES 19.9 % (15-50); MCH 28.6 pg (26.0-34.0); MCHC 34.4 g/dL (31.0-37.0); MCV 83.2 fL (80.0-100.0); MEAN PLATELET VOLUME 6.8 fL (7.4-10.4); MONOCYTES 4.8 % (2-11); NEUTROPHILS 73.7 % (40-80); PLATELET COUNT 294 10x3/uL (130-400); RBC 4.86 10x6/uL (4.20-6.10); WBC 7.9 10x3/uL (4.8-10.8)
[2020-08-16 16:47] LABS: CALC OSMOLALITY 276 mosm/kg (275-300); CALCIUM 9.3 mg/dL (8.5-10.1); CHLORIDE - SERUM 99 mmol/L (98-107); CREATININE - SERUM 1.1 mg/dL (0.6-1.3); GLUCOSE 107 mg/dL (74-106); POTASSIUM - SERUM 3.5 mmol/L (3.5-5.1); SODIUM 137 mmol/L (136-145); UREA NITROGEN 20 mg/dL (7-18); eGFR NON AFRICAN AMERICAN 75 mL/min (90-120)
[2020-08-16 16:52] LABS: ALBUMIN 3.7 g/dL (3.4-5.0); ALKALINE PHOSPHATASE 137 U/L (30-120); ALT (SGPT) 32 U/L (10-68); BILIRUBIN - TOTAL 0.46 mg/dL (0.2-1.3); PROTEIN - SERUM 8.1 g/dL (6.4-8.2)
[2020-08-16 17:00] VITALS: BP 120/69
[2020-08-16 19:04] LABS: ERYTHROCYTE SEDIMENTATION RATE 42 mm/hr (0-20)
[2020-08-16 22:12] VITALS: BP 156/97
[2020-08-16 22:57] VITALS: BP 130/79; BMI 31.4
[2020-08-17 04:00] VITALS: BP 132/86
[2020-08-17 06:18] LABS: BASOPHILS 0.2 % (0-2); EOSINOPHILS 0.6 % (0-7); HEMATOCRIT 35.9 % (42.0-54.0); HEMOGLOBIN 12.1 g/dL (13.5-17.5); LYMPHOCYTES 19.1 % (15-50); MCHC 33.8 g/dL (31.0-37.0); MCV 82.9 fL (80.0-100.0); MEAN PLATELET VOLUME 7.5 fL (7.4-10.4); MONOCYTES 6.6 % (2-11); NEUTROPHILS 73.5 % (40-80); PLATELET COUNT 247 10x3/uL (130-400); RBC 4.32 10x6/uL (4.20-6.10); RDW 14.7 % (11.5-14.5); WBC 6.7 10x3/uL (4.8-10.8)
[2020-08-17 06:31] LABS: INR 1.15 (0.85-1.17); PROTIME 13.6 SECONDS (11.6-15.0)
[2020-08-17 06:32] LABS: APTT 34.9 SECONDS (22.8-39.4)
[2020-08-17 06:40] LABS: ALBUMIN 3.1 g/dL (3.4-5.0); ALKALINE PHOSPHATASE 104 U/L (30-120); ALT (SGPT) 27 U/L (10-68); CALC OSMOLALITY 276 mosm/kg (275-300); CALCIUM 8.4 mg/dL (8.5-10.1); CARBON DIOXIDE 24.1 mmol/L (21.0-32.0); CHLORIDE - SERUM 103 mmol/L (98-107); CREATININE - SERUM 1.1 mg/dL (0.6-1.3); GLUCOSE 114 mg/dL (74-106); PHOSPHOROUS 3.4 mg/dL (2.5-4.9); PROTEIN - SERUM 6.9 g/dL (6.4-8.2); SODIUM 137 mmol/L (136-145); UREA NITROGEN 19 mg/dL (7-18); eGFR NON AFRICAN AMERICAN 75 mL/min (90-120)
[2020-08-17 06:45] LABS: POTASSIUM - SERUM 4.3 mmol/L (3.5-5.1)
[2020-08-17 08:51] VITALS: BP 118/58
[2020-08-17 10:37] VITALS: Ht 185.4 cm; Wt 90.9 kg
--- NOTE | 2020-08-17 11:20 | NUR ---
ASSESSMENT PER FLOW SHEET. PATIENT WITHOUT DISTRESS.CONSENTS TO CHART ORDERED. PREMEDS ORDERED.PATIENT TO OR VIA BED
[2020-08-17 12:34] VITALS: BP 127/75
--- NOTE | 2020-08-17 12:35 | NUR ---
PATIENT BACK TO ROOM FROM PACU.DRESSING RIGHT ARM CDI WITH WOUND VAC IN PLACE.
[2020-08-17 18:03] VITALS: BP 142/76
--- NOTE | 2020-08-17 19:45 | NUR ---
RECEIVED BEDSIDE REPORT. PT SITTING IN CHAIR A&O X4. PIV TO LEFT AC, PATENT AND INFUSING, NO REDNESS OR SWELLING. INCISION TO RIGHT ARM, DRSG C/D/I, WOUND VAC IN PLACE DRAINING TO SUCTION. PT ABLE TO AMBULATE AD ALIYAH. EDUCATED PT ON CL AND NEEDS, VERBALIZED UNDERSTANDING. BED LOW, CL IN REACH.
[2020-08-17 20:00] VITALS: BP 125/77
[2020-08-17 23:51] LABS: UDS - AMPHET NEGATIVE QUAL (NEGATIVE); UDS - BARB NEGATIVE QUAL (NEGATIVE); UDS - BENZO POSITIVE QUAL (NEGATIVE); UDS - COCAINE NEGATIVE QUAL (NEGATIVE); UDS - OPIATE POSITIVE QUAL (NEGATIVE); UDS - PCP NEGATIVE QUAL (NEGATIVE); UDS - THC NEGATIVE QUAL (NEGATIVE)
[2020-08-18] VITALS: BP 128/68
[2020-08-18 04:00] VITALS: BP 129/73; BP 136/60
[2020-08-18 07:17] LABS: BASOPHILS 0.5 % (0-2); EOSINOPHILS 1.2 % (0-7); HEMATOCRIT 29.8 % (42.0-54.0); HEMOGLOBIN 10.2 g/dL (13.5-17.5); LYMPHOCYTES 30.4 % (15-50); MCH 28.5 pg (26.0-34.0); MCHC 34.2 g/dL (31.0-37.0); MCV 83.2 fL (80.0-100.0); MEAN PLATELET VOLUME 7.9 fL (7.4-10.4); MONOCYTES 6.7 % (2-11); NEUTROPHILS 61.2 % (40-80); RBC 3.58 10x6/uL (4.20-6.10); RDW 14.4 % (11.5-14.5); WBC 5.7 10x3/uL (4.8-10.8)
[2020-08-18 07:18] LABS: PLATELET COUNT 196 10x3/uL (130-400)
[2020-08-18 07:26] LABS: C-REACTIVE PROTEIN 12.2 mg/dL (0.0-0.9); CALCIUM 7.8 mg/dL (8.5-10.1); CARBON DIOXIDE 24.4 mmol/L (21.0-32.0); CHLORIDE - SERUM 107 mmol/L (98-107); CREATININE - SERUM 0.9 mg/dL (0.6-1.3); MAGNESIUM - SERUM 2.3 mg/dL (1.8-2.4); SODIUM 139 mmol/L (136-145); UREA NITROGEN 15 mg/dL (7-18); eGFR NON AFRICAN AMERICAN > 90 mL/min (90-120)
[2020-08-18 07:29] LABS: CALC OSMOLALITY 283 mosm/kg (275-300); GLUCOSE 197 mg/dL (74-106); POTASSIUM - SERUM 3.4 mmol/L (3.5-5.1)
[2020-08-18 08:36] VITALS: BP 111/61
--- NOTE | 2020-08-18 10:01 | NUR ---
ASSESSMENT PER FLOW SHEET. PATIENT IS WITHOUT DISTRESS.MONITOR FOR NEEDS.CALL LIGHT IN REACH
[2020-08-18 12:05] VITALS: BP 130/85
[2020-08-18 17:04] VITALS: BP 144/77
--- NOTE | 2020-08-18 18:51 | NUR ---
REMAINS WITHOUT NEEDS.CONT PLAN OF CARE
[2020-08-18 20:00] VITALS: BP 134/75
--- NOTE | 2020-08-18 20:00 | NUR ---
ALERT SITTING UP IN CHAIR AT BEDSIDE, REPORTS PAIN 9/10 TO R ARM, YULIYA WRAP IN PLACE FINGERS WARM WITH GOOD MOVEMENT, SEE SHIFT ASSESSMENT, CALL LIGHT IN REACH
[2020-08-19] VITALS: BP 149/84
[2020-08-19 04:00] VITALS: BP 170/93
[2020-08-19 06:45] LABS: BASOPHILS 0.2 % (0-2); HEMATOCRIT 29.3 % (42.0-54.0); HEMOGLOBIN 10.2 g/dL (13.5-17.5); LYMPHOCYTES 21.2 % (15-50); MCH 28.9 pg (26.0-34.0); MCHC 34.6 g/dL (31.0-37.0); MCV 83.4 fL (80.0-100.0); MEAN PLATELET VOLUME 7.5 fL (7.4-10.4); MONOCYTES 6.5 % (2-11); NEUTROPHILS 71.1 % (40-80); PLATELET COUNT 227 10x3/uL (130-400); RBC 3.52 10x6/uL (4.20-6.10); RDW 13.9 % (11.5-14.5); WBC 5.8 10x3/uL (4.8-10.8)
[2020-08-19 06:56] LABS: CALC OSMOLALITY 280 mosm/kg (275-300); CALCIUM 8.2 mg/dL (8.5-10.1); CARBON DIOXIDE 25.1 mmol/L (21.0-32.0); CHLORIDE - SERUM 108 mmol/L (98-107); CREATININE - SERUM 0.8 mg/dL (0.6-1.3); GLUCOSE 111 mg/dL (74-106); MAGNESIUM - SERUM 2.3 mg/dL (1.8-2.4); PHOSPHOROUS 2.8 mg/dL (2.5-4.9); POTASSIUM - SERUM 3.9 mmol/L (3.5-5.1); SODIUM 141 mmol/L (136-145); UREA NITROGEN 10 mg/dL (7-18); VANCOMYCIN - TROUGH 12.9 ug/mL (10.0-20.0); eGFR NON AFRICAN AMERICAN > 90 mL/min (90-120)
[2020-08-19 08:11] VITALS: BP 137/94
[2020-08-19 12:25] VITALS: BP 156/99
--- NOTE | 2020-08-19 16:13 | NUR ---
CONSENTS OBTAINED FOR PROCEDURE AND ON CHART. EKG ON CHART.
[2020-08-19 16:19] VITALS: BP 156/79
--- NOTE | 2020-08-19 16:45 | NUR ---
VAN CHAIDEZ MADE AWARE 101.8 TEMP. ORDERS PLACED.
--- NOTE | 2020-08-19 17:21 | NUR ---
PATIENT TEMP NOW 98.9. INDUSTRIAL AUTOMATION ENGINEER AWARE.
[2020-08-19 17:41] LABS: BILIRUBIN NEGATIVE (NEGATIVE); KETONE NEGATIVE (NEGATIVE); NITRITE NEGATIVE (NEGATIVE); UROBILINOGEN NORMAL mg/dL (< 2)
--- NOTE | 2020-08-19 19:45 | NUR ---
RECEIVED BEDSIDE REPORT. PT LAYING IN BED A&O X4. PIV TO LEFT AC PATENT AND INFUSING, NO REDNESS OR SWELLING. INCISION TO RIGHT AC, DRSG C/D/I, YULIYA WRAP IN PLACE, WOUND VAC IN PLACE, PATENT AND DRAINING TO SUCTION. PT ABLE TO AMBULATE AD ALIYAH. EDUCATED PT ON CL AND NEEDS, VERBALIZED UNDERSTANDING. BED LOW, CL IN REACH.
[2020-08-19 20:00] VITALS: BP 145/96
[2020-08-20 03:56] LABS: BASOPHILS 0.4 % (0-2); EOSINOPHILS 1.4 % (0-7); HEMATOCRIT 32.7 % (42.0-54.0); HEMOGLOBIN 11.1 g/dL (13.5-17.5); LYMPHOCYTES 20.7 % (15-50); MCH 28.1 pg (26.0-34.0); MCV 82.7 fL (80.0-100.0); MONOCYTES 5.8 % (2-11); NEUTROPHILS 71.7 % (40-80); PLATELET COUNT 270 10x3/uL (130-400); RBC 3.96 10x6/uL (4.20-6.10); RDW 14.3 % (11.5-14.5); WBC 6.2 10x3/uL (4.8-10.8)
[2020-08-20 04:00] VITALS: BP 116/60
[2020-08-20 04:02] LABS: C-REACTIVE PROTEIN 7.3 mg/dL (0.0-0.9); CALC OSMOLALITY 273 mosm/kg (275-300); CALCIUM 8.4 mg/dL (8.5-10.1); CARBON DIOXIDE 25.2 mmol/L (21.0-32.0); CHLORIDE - SERUM 103 mmol/L (98-107); GLUCOSE 92 mg/dL (74-106); MAGNESIUM - SERUM 1.9 mg/dL (1.8-2.4); PHOSPHOROUS 2.6 mg/dL (2.5-4.9); POTASSIUM - SERUM 4.1 mmol/L (3.5-5.1); SODIUM 137 mmol/L (136-145); UREA NITROGEN 12 mg/dL (7-18); VANCOMYCIN - TROUGH 15.7 ug/mL (10.0-20.0); eGFR NON AFRICAN AMERICAN 84 mL/min (90-120)
--- NOTE | 2020-08-20 04:24 | NUR ---
RECEIVED BEDSIDE REPORT. PT LAYING IN BED A&O X4. PIV TO LEFT AC, PATENT AND INFUSING, NO REDNESS OR SWELLING. INCISION TO RIGHT AC, DRSG C/D/I, WOUND VAC IN PLACE, PATENT AND DRAINING TO SUCTION. PT ABLE TO AMBULATE AD ALIYAH. EDUCATED PT ON CL AND NEEDS, VERBALIZED UNDERSTANDING. BED LOW, CL IN REACH.
--- NOTE | 2020-08-20 07:36 | NUR ---
ALERT AND ORIENTED. ASSESSMENT COMPLETE. DENIES NEEDS. BED LOW. CALL GRAYSON AND PERSONAL ITEMS IN REACH. WILL CONTINUE TO MONITOR.
[2020-08-20 09:52] VITALS: BP 140/85
[2020-08-20 12:36] VITALS: BP 111/58
--- NOTE | 2020-08-20 13:05 | NUR ---
Nutrition follow-up: Pt NPO for I&D of elbow today with wound VAC placement PO intake of regular diet has been ~75-100% of meals Labs reviewed Wt: 200# Recommendations: When diet advances, recommend starting Justin nutritional supplement, 1 pkt BID mixed in juice; daily multivitamin, 220 mg zinc, 1000 mg vitamin C to aid with wound healing. RDN will follow-up on progress toward nutrition goals in 3-5 days.
--- NOTE | 2020-08-20 13:50 | NUR ---
PATIENT TAKEN FOR PROCEDURE.
[2020-08-20 16:13] VITALS: BP 117/52
--- NOTE | 2020-08-20 16:49 | NUR ---
PATIENT RESTING IN BED. VS REMAIN STABLE.
[2020-08-20 20:12] VITALS: BP 145/86
[2020-08-21 04:00] VITALS: BP 160/80
[2020-08-21 06:45] LABS: BASOPHILS 0.2 % (0-2); EOSINOPHILS 0.3 % (0-7); HEMATOCRIT 28.9 % (42.0-54.0); LYMPHOCYTES 15.1 % (15-50); MCH 28.6 pg (26.0-34.0); MCHC 34.6 g/dL (31.0-37.0); MCV 82.7 fL (80.0-100.0); MEAN PLATELET VOLUME 6.9 fL (7.4-10.4); MONOCYTES 7.2 % (2-11); NEUTROPHILS 77.2 % (40-80); RBC 3.49 10x6/uL (4.20-6.10); RDW 14.1 % (11.5-14.5); WBC 6.9 10x3/uL (4.8-10.8)
[2020-08-21 06:49] LABS: PLATELET COUNT 214 10x3/uL (130-400)
[2020-08-21 07:16] LABS: CARBON DIOXIDE 23.4 mmol/L (21.0-32.0); CHLORIDE - SERUM 105 mmol/L (98-107); SODIUM 138 mmol/L (136-145); UREA NITROGEN 14 mg/dL (7-18); eGFR NON AFRICAN AMERICAN 84 mL/min (90-120)
[2020-08-21 07:27] LABS: CALC OSMOLALITY 281 mosm/kg (275-300); GLUCOSE 187 mg/dL (74-106); POTASSIUM - SERUM 3.4 mmol/L (3.5-5.1)
[2020-08-21 08:42] VITALS: BP 118/76
--- NOTE | 2020-08-21 10:10 | NUR ---
ALERT AND ORIENTED. ASSESSMENT COMPLETE. DENIES NEEDS. BED LOW. CALL GRAYSON AND PERSONAL ITEMS IN REACH. WILL CONTINUE TO MONITOR.
[2020-08-21 12:53] VITALS: BP 144/78
--- NOTE | 2020-08-21 14:57 | OP ---
PATIENT NAME: ASHLI FREED MEDICAL RECORD: [id number] :70 LOCATION:D.MS Sun2210 ADMISSION DATE:08/16/20 SURGEON: ROSE FLORES MD DATE OF OPERATION: 08/17/2020 PREOPERATIVE DIAGNOSIS: Right elbow abscess. POSTOPERATIVE DIAGNOSIS: Right elbow abscess. PROCEDURE PERFORMED: 1. Incision and debridement, right elbow (skin, subcutaneous tissue, fascia). 2. Application of wound VAC, right elbow (less than 50 cm-squared). INDICATIONS FOR THE PROCEDURE: Mr. Freed is a 50-year-old male who was seen in the Emergency Department for redness and swelling of his right elbow. He had previous I&D for abscess, 07/08/2020. This was treated with antibiotics and he was doing better until a couple of days ago. He started to develop increased redness and swelling in the elbow and returns to the Emergency Department. MRI was obtained that showed evidence of abscess in the subcutaneous tissues as well as inflammation along the underlying muscles. Arrangements were made for him to come to the operating room today for debridement. Risks, benefits and alternatives of surgery were discussed with the patient and consent was obtained. DESCRIPTION OF THE PROCEDURE: The patient was met in the holding area where his identity and confirmation of procedure was performed. The right upper extremity was marked. He was taken to the operating room where he was placed supine on the operating table, and anesthesia was administered. Tourniquet was applied to the right arm and the right arm was prepped and draped in a sterile fashion. The patient is on scheduled antibiotics; therefore, did not receive any immediately preop. A timeout was performed before initiating the case. On initiation of the case, an elliptical incision was made around the previous scar over the lateral aspect of the antecubital fossa. The skin and deep subcutaneous tissues were excised. There was extensive scarring and induration of the underlying tissues. With finger dissection, I was able to dissect down to the subcutaneous fascial layer and at that point, there was a large amount of purulent fluid that was expressed from the wound. It appeared to be well confined from that area. Cultures were obtained. The wound was irrigated thoroughly with saline. Hemostat was used to dissect into the fascial compartments of the arm and flexor compartment of the forearm. There did not appear to be any involvement of those deep layers. Again, this appeared to be confined to those subcutaneous tissues of the lateral antecubital fossa. The wound was irrigated thoroughly with saline. There was a vein extending across the inferior border of our incision that was ligated with 0 silk suture. The wound VAC was then applied to the wound measuring 4 x 2 cm. It was applied and noted to have good compression in the operating room. A posterior splint was then placed on the arm. The patient was turned back over to anesthesia where he was awakened and taken to recovery room in stable condition. POSTOPERATIVE PLAN: The patient is going to return to the floor for continued postoperative care. We will continue his IV antibiotics with vancomycin and also add cefepime. We will follow culture results and tailor these antibiotics accordingly. Plan, return to the operating room later this week for repeat I&D versus closure. OPERATIVE REPORT [id number] ASHLI FREED COMPLICATIONS: None. ESTIMATED BLOOD LOSS: 10 mL. ANESTHESIA: General LMA. TRANSINT:[id number] Voice Confirmation ID: [id number] DOCUMENT ID: [id number] ROSE FLORES MD at 1457 CC: [id number] DICTATION DATE: 08/17/20 1226 SHELL FREEZING MACHINE OPERATOR: 08/17/20 1542 ADM IN [place] [id number] [place] [address]
[2020-08-21] MEDS ORDERED: CLINDAMYCIN HC300 MG PO (15:01)
[2020-08-21] MEDS ORDERED: LEVAQUIN750 MG PO (15:01)
--- NOTE | 2020-08-21 15:59 | NUR ---
DC EDUCATION PROVIDED BOTH WRITTEN AND VERBAL. VERBALIZED UNDERSTANDING. DENIES FURTHER QUESTIONS. SUPPLIES PROVIDED FOR DRSG CHANGES PER ORDER. DENIES FURTHER NEEDS. IV REMOVED FROM LFA WITH TIP INTACT. PATIENT DC HOME WITH WITH ALL BELONGINGS.
--- NOTE | 2020-08-21 16:01 | MORECARE ---
CASE MANAGEMENT DISCHARGE SUMMARY PATIENT: ASHLI BARBER UNIT: [id number] ADM DATE: 08/16/20 AGE: 50 : 70 SEX: M ROOM/BED: D.2210 AUTHOR: ZANDER,DOC PHYSICIAN: REFERRING PHYSICIAN: MELODY VAZQUEZ MD DATE OF SERVICE: 08/21/20 Case Management Discharge Planning Summary COMMENTS ENTERED DATE: 08/21/20 15:52 CT COMMENT TYPE: Discharge Planning REVIEWER: Paradise Liriano CM met with patient to complete initial dc planning assessment. CM educated patient on the CM role and verbal consent given by patient to complete assessment. Patient lives at home where he is independent with his care. At discharge patient plans to return home and feels this is a safe discharge. CM discussed availability of home health, rehab services, and medical equipment. He stated that he knows what to do with his dressing and did not want home health. his sister, Christiano will be his day haul or farm charter bus driver home and is a good support for him. His PCP is Dr Quinonez and he uses [facility] or [facility]. IMM served and explained. Patient denied known discharge needs at this time. CM will continue to follow and will assist as needed with dc plans/needs. DCP REVIEW SUMMARY ANTICIPATED D/C DATE: EXPECTED LOS : CASE STATUS: DCP Initiated INITIAL REVIEW: 08/16/2020 INITIAL REVIEWER: Paradise Liriano FINAL DISCHARGE DISPOSITION: 01 : Home or Self Care (Routine Discharge) FINAL REVIEWER: FINAL REVIEW DATE: DCP Focus Questions & Answers QUESTION: ANSWER : PATIENT: ASHLI BARBER ENCOUNTER: [id number] MEDICAL RECORD#: [id number] ADMISSION DATE: 08/16/2020 DISCHARGE DATE: ATTENDING MD: MELODY YAÑEZ : AGE: 50 MARITAL STATUS: S DC PLAN ID: [id number] FACILITY: [facility] PRINTED ON: 08/21/20 16:01 CT All edits/amendments must be made on the electronic document DICTATION DATE: 08/21/201600 CUSTOMS PORT DIRECTOR: KEIKO 08/21/201600 RPT#: [id number] DC DATE: STATUS: ADM IN [facility] [address] [place] [address] END OF REPORT
[2020-08-22 14:09] LABS: AEROBE ID Preliminary report (())
--- NOTE | 2020-08-24 09:49 | MORECARE ---
CASE MANAGEMENT DISCHARGE SUMMARY PATIENT: ASHLI BARBER UNIT: [id number] ADM DATE: 08/16/20 AGE: 50 : 70 SEX: M ROOM/BED: D.2210 AUTHOR: ZANDER,DOC PHYSICIAN: REFERRING PHYSICIAN: MELODY VAZQUEZ MD DATE OF SERVICE: 08/24/20 Case Management Discharge Planning Summary COMMENTS ENTERED DATE: 08/21/20 15:52 CT COMMENT TYPE: Discharge Planning REVIEWER: Paradise Liriano CM met with patient to complete initial dc planning assessment. CM educated patient on the CM role and verbal consent given by patient to complete assessment. Patient lives at home where he is independent with his care. At discharge patient plans to return home and feels this is a safe discharge. CM discussed availability of home health, rehab services, and medical equipment. He stated that he knows what to do with his dressing and did not want home health. his sister, Christiano will be his bus driver supervisor home and is a good support for him. His PCP is Dr Quinonez and he uses [facility] pharm or [facility]. IMM served and explained. Patient denied known discharge needs at this time. CM will continue to follow and will assist as needed with dc plans/needs. DCP REVIEW SUMMARY ANTICIPATED D/C DATE: EXPECTED LOS : CASE STATUS: DCP Initiated INITIAL REVIEW: 08/16/2020 INITIAL REVIEWER: Paradise Liriano FINAL DISCHARGE DISPOSITION: 01 : Home or Self Care (Routine Discharge) FINAL REVIEWER: FINAL REVIEW DATE: DCP Focus Questions & Answers QUESTION: ANSWER : PATIENT: ASHLI BARBER ENCOUNTER: [id number] MEDICAL RECORD#: [id number] ADMISSION DATE: 08/16/2020 DISCHARGE DATE: 08/21/2020 ATTENDING MD: MELODY YAÑEZ : AGE: 50 MARITAL STATUS: S DC PLAN ID: [id number] FACILITY: [facility] PRINTED ON: 08/24/20 9:49 CT All edits/amendments must be made on the electronic document DICTATION DATE: 08/24/20948 CYTOGENETICIST: KEIKO 08/24/20 0949 RPT#: [id number] DC DATE:08/21/20 STATUS: DIS IN [facility] [address] [place] [address] END OF REPORT
== END 2020-08-21 16:05 | disposition home or self-care (01) | DRG 572 ==
LOC: D.ER 15:25 → D.MS 20:10
PROVIDERS: Emergency Medicine; Family Medicine; Orthopaedic Surgery; ADMIT Emergency Medicine; ATTEND Emergency Medicine
PROC: 0JBG0ZZ Excision of Right Lower Arm Subcutaneous Tissue and Fascia, Open Approach (ICD-10-PCS; principal; 2020-08-17 11:30)
PROC: 0XQBXZZ Repair Right Elbow Region, External Approach (ICD-10-PCS; 2020-08-20)
DX: L02.413 Cutaneous abscess of right upper limb (principal); G47.00 Insomnia, unspecified; I10 Essential (primary) hypertension; E78.5 Hyperlipidemia, unspecified; G62.9 Polyneuropathy, unspecified; F41.8 Other specified anxiety disorders; G89.29 Other chronic pain; M54.9 Dorsalgia, unspecified; F17.200 Nicotine dependence, unspecified, uncomplicated

== ENCOUNTER → 2020-08-27 09:27 | Outpatient (CLI) | payer MEDICARE, MEDICAID ==
[2020-08-17 10:37] VITALS: BMI 31.4
[~2020-08-27 09:27] MED LIST changes: +CLINDAMYCIN HC300 MG PO; +LEVAQUIN750 MG PO
--- NOTE | 2020-08-28 09:25 | EC ---
PATIENT:ASHLI BARBER DATE OF SERVICE: 08/27/20 SEX: M MEDICAL RECORD: [id number] DATE OF : 70 LOCATION:[facility] AGE OF PATIENT: 50 ADMISSION DATE: 08/27/20 REFERRING PHYSICIAN: INTERPRETING PHYSICIAN: NOHEMI GAITAN MD ECHOCARDIOGRAM REPORT ECHO CHARGES 4 ECHO COMPLETE Date: 08/27/20 CLINICAL DIAGNOSIS: EDEMA ECHOCARDIOGRAPHIC MEASUREMENTS (adult normal given) AC root (d.<3.7cm) 2.8 cm LV Septum d (<1.2 cm> 0.7 cm Valve Excursion 1.9 cm LV Septum (systole) 1.3 cm Left Atria (s.<4.0cm> 3.7 cm LVPW d(<1.2cm) 0.8 cm RV (d.<2.3cm) 3.0 cm LVPW (sytole) 1.3 cm LV diastole(<5.6CM) 4.9 cm MV E-F(>70mm/sec) cm LV systole 3.3 cm LVOT Diameter 1.7 cm MV exc.(>10mm) 1.7 cm Est.ejection fraction (50-75%) % DOPPLER: LVIT cm/sec A 52 cm/sec E 76 cm/sec LA cm/sec RVSP 28 mmHg LVOT 114 cm/sec AOP1/2T m/s Asc. Ao 122 cm/sec RVOT 81 cm/sec RA cm/sec PA 118 cm/sec AV Gradient Peak 6.0 mmHg AV Mean 3.5 mmHg AV Area 2.0 cm MV Gradient Peak 3.3 mmHg MV Mean 1.7 mmHg MV Area cm COMMENTS: Resaw Feeder: Dean [facility] Client Hr Manager: 3 Dr. Evangelista TAPE# Pericardial Effusion N DATE OF SERVICE: Adequate 2D, color flow imaging, spectral Doppler, and M-Mode. FINDINGS: No LVH. LV internal dimension is normal. Wall motion is normal. EF is greater than or equal to 55%. Aortic valve is tricuspid. No evidence of stenosis by Doppler interrogation. Left atrium is normal at 3.7 cm. Mitral valve shows no prolapse. Trivial MR. Right side is grossly normal. Trivial TR. TRANSINT:[id number] Voice Confirmation ID: [id number] DOCUMENT ID: [id number] ECHOCARDIOGRAM REPORT [id number] VANPELT,ASHLI SUDHAKARNOHEMI PAREDES MD at 0925 CC: [id number] DICTATION DATE: 08/27/20 172 MANAGER ANIMATION: 08/27/201928 DEP CLI 08/27/20 [address] [id number] [place] [address]
== END | disposition home or self-care (01) ==
LOC: D.ECHO 08-26 10:35
PROVIDERS: ATTEND Clinical Nurse Specialist Family Health
DX: R60.9 Edema, unspecified (principal)